=== PATIENT | male | born 1930 | race Caucasian/White ===

== ENCOUNTER 2017-04-18 14:27 | Inpatient (IN) | payer OTHER, MEDICARE ==
[2017-04-18] VITALS (11 sets, daily range): BP systolic 108–145; BP diastolic 57–79; PULSE 85–122; RESP 16; TEMP 99.2–100.4; O2SAT 90–95
[~2017-04-18] VITALS: Ht 172.7 cm; Wt 98.2 kg
[~2017-04-18 14:27] MED LIST: ASPI81TA82 PO; BUME1TAB PO; CALC-137 PO; CO Q100C9 OR; DOXY100T PO; OXYB5TAB PO; SIMV80TA PO; TRAM50TA PO; ZOFR4TAB3 SL
[2017-04-18] MEDS ORDERED: COQ-100C5 (14:42)
[2017-04-18] MEDS ORDERED: ATOR40TA16 PO (14:42)
[2017-04-18] MEDS ORDERED: MAGN400T2 PO (14:42)
[2017-04-18] MEDS ORDERED: CALC600T64 (14:42)
[2017-04-18] MEDS ORDERED: POTA8CAP PO (14:42)
[2017-04-18] MEDS ORDERED: METF500T PO (14:42)
[2017-04-18] MEDS ORDERED: VITATAB43 PO (14:42)
[2017-04-18] MEDS ORDERED: ASPI81CH6 CHEW (14:42)
[2017-04-18] MEDS ORDERED: SODIUM CHLOR 0.9% 1000 ML INJ 1,000 ML IV ONE ×2 (15:15→17:15)
[2017-04-18 15:38] LABS: AUTOMATED NEUTROPHIL # 27.9 TH/MM3 (1.8-7.7); BASOPHIL # 0.1 TH/MM3 (0-0.2); BASOPHIL % 0.4 % (0.0-2.0); HEMATOCRIT 44.1 % (39.0-51.0); HEMOGLOBIN 14.7 GM/DL (13.0-17.0); LYMPH % 2.8 % (9.0-44.0); LYMPHOCYTE # 0.9 TH/MM3 (1.0-4.8); MEAN CELL VOLUME 97.5 FL (80.0-100.0); MEAN CORPUSCULAR HEMOGLOBIN 32.5 PG (27.0-34.0); MEAN CORPUSCULAR HGB CONC 33.4 % (32.0-36.0); MEAN PLATELET VOLUME 9.5 FL (7.0-11.0); MONO % 6.7 % (0.0-8.0); MONOCYTE # 2.1 TH/MM3 (0-0.9); NEUT % 90.1 % (16.0-70.0); PLATELET COUNT 223 TH/MM3 (150-450); RED BLOOD COUNT 4.52 MIL/MM3 (4.50-5.90); RED CELL DISTRIBUTION WIDTH 12.6 % (11.6-17.2)
[2017-04-18 15:52] LABS: CHLORIDE 101 MEQ/L (98-107); SODIUM (NA) 133 MEQ/L (136-145)
[2017-04-18 15:55] LABS: BICARBONATE 18.6 MEQ/L (21.0-32.0); BLOOD UREA NITROGEN 26 MG/DL (7-18); CALCIUM 8.8 MG/DL (8.5-10.1); GLUCOSE,RANDOM 217 MG/DL (74-106)
[2017-04-18 15:58] LABS: INTERNATIONAL NORMALIZED RATIO 1.1 RATIO; PROTHROMBIN TIME - PATIENT 11.6 SEC (9.8-11.6)
[2017-04-18 15:59] LABS: GLOMERULAR FILTRATION RATE 48 ML/MIN (>89)
[2017-04-18 16:03] LABS: TROPONIN I LESS THAN 0.02 NG/ML (0.02-0.05)
[2017-04-18 16:25] LABS: BANDS 4 % (0-6); LYMPHOCYTES 3 % (9-44); MONOCYTES 9 % (0-8); NEUTROPHIL # MANUAL DIFF 27.3 TH/MM3 (1.8-7.7); POLYS (SEG NEUTROPHILS) 84 % (16-70)
[2017-04-18 16:26] LABS: TOXIC GRANULATION 1+ (NORMAL)
[2017-04-18 16:40] LABS: BLOOD, URINE LARGE (NEG); GLUCOSE,URINE NEG (NEG); KETONE, URINE 15 mg/dL (NEG); NITRITE,URINE POS (NEG); PH, URINE 5.5 (5.0-8.5); URINE LEUKOCYTE ESTERASE TRACE (NEG)
--- NOTE | 2017-04-18 16:49 | RADRPT ---
EXAM DATE/TIME: 04/18/2017 16:15 [place] COMPARISON: No previous studies available for comparison. INDICATIONS : Fell, has pain left anterior lower chest when he lays on left side MEDICAL HISTORY : None. SURGICAL HISTORY : None. ENCOUNTER: Initial ACUITY: 2 days PAIN SCORE: 10/10 LOCATION: Left lower chest FINDINGS: There are acute fractures of the left 8 and ninth ribs without a pneumothorax. CONCLUSION: Acute left rib fractures. Rody Horta MD on April 18, 2017 at 16:46 Board Certified Radiologist. This report was verified electronically.
[2017-04-18 17:13] LABS: BILIRUBIN, URINE NEG (NEG)
[2017-04-18] MEDS ORDERED: PIPERACIL-TAZO 3.375 GM PREMIX 50 ML IV ONE (17:15)
[2017-04-18] MEDS ORDERED: VANCOMYCIN INJ 1,250 MG in SODIUM CHLOR 0.9% 250 ML INJ 250 ML IV ONE (17:15)
--- NOTE | 2017-04-18 17:18 | PD ---
HPI Chief Complaint: General Weakness Time Seen by Provider: 14:56 Travel History International Travel<30 days: No Contact w/Intl Traveler<30days: No Traveled to known affect area: No History of Present Illness HPI 86yo M presents to the ED with left rib pain s/p fall yesterday. Denies any head trauma or LOC. Pt was able to get up himself. Denies any chest pain, sob , n/v, abdominal pain, focal weakness or numbness. Pt has been having worsening generalized weakness for a while now. Said he has urinary incontinence for years and fecal incontinence for weeks. He lives with his and is having a hard to taking care of himself. PFSH Past Medical History Arthritis: Yes High Cholesterol: Yes Diabetes: Yes Patient Takes Glucophage: Yes Diminished Hearing: No Influenza Vaccination: No Social History Alcohol Use: No Tobacco Use: No Substance Use: No Allergies-Medications (Allergen,Severity, Reaction): Coded Allergies: No Known Allergies (Verified Allergy, Unknown, 04/18/17) Reported Meds & Prescriptions Reported Meds & Active Scripts Active Reported Vitamin [id number] Acid (Cobalamine Combinations) 500-400 Mcg Tab 1 Tab PO EVERY OTHER DAY Magnesium Oxide 400 Mg Tab 400 Mg PO DAILY Potassium Chloride ER (Potassium Chloride) 8 Meq Cap 99 Mg PO DAILY Calcium 600 + Vit D Tablet (Calcium Carbonate/Vitamin D3) 250 Mg Calcium (600 Mg )-125 Unit Tablet Coq-10 Tr (Coenzyme Q10 (Ubidecarenone)) 100 Mg Cap Aspirin Low Dose (Aspirin) 81 Mg Chew 81 Mg CHEW DAILY Atorvastatin (Atorvastatin Calcium) 40 Mg Tab 40 Mg PO HS Metformin (Metformin HCl) 500 Mg Tab 500 Mg PO DAILY With a meal Review of Systems Except as stated in HPI: all other systems reviewed are Neg Physical Exam Narrative GENERAL: 86yo M in mild distress. SKIN: Focused skin assessment warm/dry. HEAD: Atraumatic. Normocephalic. EYES: Pupils equal and round. No scleral icterus. No injection or drainage. ENT: No nasal bleeding or discharge. Mucous membranes pink and moist. NECK: Trachea midline. No JVD. CARDIOVASCULAR: Regular rate and rhythm. No murmur appreciated. RESPIRATORY: No accessory muscle use. Clear to auscultation. Breath sounds equal bilaterally. GASTROINTESTINAL: Abdomen soft, non-tender, nondistended. MUSCULOSKELETAL: +TTP left anterior ribs 9-11. NEUROLOGICAL: Awake and alert. No obvious cranial nerve deficits. Decreased strength in bilateral lower extremity. Sensation intact. PSYCHIATRIC: Appropriate mood and affect; insight and judgment normal. Data Data Last Documented VS Vital Signs Date Time Temp Pulse Resp B/P (MAP) Pulse Ox O2 Delivery O2 Flow Rate FiO2 04/18/17 15:52 110 16 145/64 (91) 92 Nasal Cannula 2.00 04/18/17 14:32 99.5 Orders Orders Blood Culture (04/18/17 15:07) Complete Blood Count With Diff (04/18/17 15:07) Basic Metabolic Panel (Bmp) (04/18/17 15:07) Troponin I (04/18/17 15:07) Prothrombin Time / Inr (Pt) (04/18/17 15:07) Act Partial Throm Time (Ptt) (04/18/17 15:07) Lactic Acid Sepsis Protocol (04/18/17 15:07) Ribs, Uni (W/Exp Cxr-Min 3vw) (04/18/17 ) Urinalysis - C+S If Indicated (04/18/17 15:07) Sodium Chlor 0.9% 1000 Ml Inj (Ns 1000 M (04/18/17 15:15) B-Type Natriuretic Peptide (04/18/17 15:07) Electrocardiogram (04/18/17 ) Sodium Chlor 0.9% 1000 Ml Inj (Ns 1000 M (04/18/17 17:15) Vancomycin Inj (Vancomycin Inj) (04/18/17 17:15) Piperacil-Tazo 3.375 Gm Premix (Zosyn 3. (04/18/17 17:15) Influenzae A/B Antigen (04/18/17 17:22) Admit Order (Ed Use Only) (04/18/17 17:22) Urine Culture (04/18/17 16:14) Labs Laboratory Tests Test 04/18/17 15:10 04/18/17 16:14 04/18/17 16:51 White Blood Count 31.0 TH/MM3 Red Blood Count 4.52 MIL/MM3 Hemoglobin 14.7 GM/DL Hematocrit 44.1 % Mean Corpuscular Volume 97.5 FL Mean Corpuscular Hemoglobin 32.5 PG Mean Corpuscular Hemoglobin Concent 33.4 % Red Cell Distribution Width 12.6 % Platelet Count 223 TH/MM3 Mean Platelet Volume 9.5 FL Neutrophils (%) (Auto) 90.1 % Lymphocytes (%) (Auto) 2.8 % Monocytes (%) (Auto) 6.7 % Eosinophils (%) (Auto) 0.0 % Basophils (%) (Auto) 0.4 % Neutrophils # (Auto) 27.9 TH/MM3 Lymphocytes # (Auto) 0.9 TH/MM3 Monocytes # (Auto) 2.1 TH/MM3 Eosinophils # (Auto) 0.0 TH/MM3 Basophils # (Auto) 0.1 TH/MM3 CBC Comment AUTO DIFF Differential Total Cells Counted 100 Neutrophils % (Manual) 84 % Band Neutrophils % 4 % Lymphocytes % 3 % Monocytes % 9 % Neutrophils # (Manual) 27.3 TH/MM3 Differential Comment FINAL DIFF MANUAL Toxic Granulation 1+ Platelet Estimate NORMAL Platelet Morphology Comment NORMAL Red Cell Morphology Comment NORMAL Prothrombin Time 11.6 SEC Prothromb Time International Ratio 1.1 RATIO Activated Partial Thromboplast Time 25.2 SEC Blood Urea Nitrogen 26 MG/DL Creatinine 1.40 MG/DL Random Glucose 217 MG/DL Calcium Level 8.8 MG/DL Sodium Level 133 MEQ/L Potassium Level 4.3 MEQ/L Chloride Level 101 MEQ/L Carbon Dioxide Level 18.6 MEQ/L Anion Gap 13 MEQ/L Estimat Glomerular Filtration Rate 48 ML/MIN Troponin I LESS THAN 0.02 NG/ML B-Type Natriuretic Peptide 33 PG/ML Urine Collection Type CLEAN CATCH Urine Color DARK YELLOW Urine Turbidity CLOUDY Urine pH 5.5 Urine Specific [place] 1.027 Urine Protein 100 mg/dL Urine Glucose (UA) NEG mg/dL Urine Ketones 15 mg/dL Urine Occult Blood LARGE Urine Nitrite POS Urine Bilirubin NEG Urine Leukocyte Esterase TRACE Urine WBC 15-19 /hpf Urine WBC Clumps FEW Urine Squamous Epithelial Cells 3-5 /hpf Urine Bacteria MOD /hpf Urine Hyaline Casts 0-2 /lpf Urine Fine Granular Casts 3-5 /lpf Microscopic Urinalysis Comment CULTURE INDICATED Lactic Acid Level 2.3 mmol/L MDM Medical Decision Making Medical Screen Exam Complete: Yes Emergency Medical Condition: Yes Interpretation(s) EKG: Sinus tachycardia at 113bpm. LAD. No ST segment elevation or depression. Q wave in inferior leads. Differential Diagnosis Failure to thrive vs. malignancy vs. rib fracture vs. sepsis Narrative Course 86yo M with left rib pain s/p fall yesterday. Xray left ribs and CXR showed acute fractures of left 8th and 9th ribs without pneumothorax. Pt initially tachycardic in the 120s and given NS IVF which improve the heart rate to 100bpm. Labs reviewed, marked leukocytosis at 31,000. Pt does have history of a skin cancer 2 years ago but he said they just zap it. Lactic acid is elevated at 2.3. BUN/creatinine also elevated at 26/1.40. Troponin negative. BNP normal. Glucose elevated at 217. No increased in anion gap. UA showed positive nitrite. Pt empirically cover with vancomycin and zosyn. 2nd liter of NS IVF ordered. Discussed with Dr. Leal and accepted to her service for sepsis. Sepsis Criteria SIRS Criteria (2 or more): Heart rate over 90, WBC > 23202, < 4000 or > 10% bands Sepsis Criteria (SIRS+source): Infect source susp/known Severe Sepsis (+one): Lactate >2 Diagnosis Primary Impression: Severe sepsis Additional Impression: Rib fractures Qualified Codes: S22.42XA - Multiple fractures of ribs, left side, initial encounter for closed fracture Admitting Information Admitting Physician Requests: it Renee Orellana DO Apr 18, 2017 17:18
[2017-04-18 17:19] LABS: URINE COLOR DARK YELLOW (YELLW/STRAW)
[2017-04-18 17:20] LABS: WBC, URINE 15-19 /hpf (0-5); WHITE BLOOD CELL CLUMPS FEW
[2017-04-18 17:22] LABS: BACTERIA, URINE MOD /hpf; HYALINE CAST, URINE 0-2 /lpf (RARE)
[2017-04-18] MEDS ORDERED: DEXTROSE 50% IN WATER 50 ML VIAL(D50) IV PUSH PRN (17:30)
[2017-04-18] MEDS ORDERED: MAGNESIUM HYDROXIDE SUSP 30 ML CUP PO PRN (17:30)
[2017-04-18] MEDS ORDERED: GLUCAGON 1 MG/ML VIAL OTHER PRN (17:30)
[2017-04-18] MEDS ORDERED: NALOXONE HCL 0.4 MG/ML AMP IV PUSH PRN (17:30)
[2017-04-18] MEDS ORDERED: SODIUM CHLORIDE 0.9% FLUSH 10 ML FLUSH IV FLUSH PRN (17:30)
[2017-04-18] MEDS ORDERED: ONDANSETRON HCL 4 MG/2 ML VIAL IVP PRN (17:30)
[2017-04-18 17:49] LABS: LACTIC ACID SEPSIS PROTOCOL 2.3 mmol/L (0.4-2.0)
[2017-04-18] MEDS: ACETAMINOPHEN 325 MG TAB PO PRN (18:18)
[2017-04-18 18:57] LABS: TROPONIN I LESS THAN 0.02 NG/ML (0.02-0.05)
[2017-04-18] MEDS: SODIUM CHLOR 0.9% 1000 ML INJ 1,000 ML IV SCH (19:50)
[2017-04-18] MEDS: SODIUM CHLORIDE 0.9% FLUSH 10 ML FLUSH IV FLUSH SCH (21:00)
[2017-04-18] MEDS: INSULIN NovoLIN REGULAR SUPPLEMENTAL SCALE SQ SCH (21:19)
[2017-04-18 23:19] LABS: TROPONIN I 0.02 NG/ML (0.02-0.05)
[2017-04-19] VITALS (7 sets, daily range): BP systolic 109–136; BP diastolic 57–75; PULSE 67–88; RESP 16–20; TEMP 97.5–99.2; O2SAT 93–99
[2017-04-19] MEDS: SODIUM CHLOR 0.9% 1000 ML INJ 1,000 ML IV SCH ×2 (05:56→13:24)
[2017-04-19 06:16] LABS: AUTOMATED NEUTROPHIL # 21.4 TH/MM3 (1.8-7.7); BASOPHIL % 0.1 % (0.0-2.0); CHLORIDE 106 MEQ/L (98-107); EOSINOPHIL # 0.1 TH/MM3 (0-0.4); EOSINOPHIL % 0.2 % (0.0-4.0); HEMATOCRIT 37.4 % (39.0-51.0); HEMOGLOBIN 13.1 GM/DL (13.0-17.0); LYMPH % 8.5 % (9.0-44.0); LYMPHOCYTE # 2.2 TH/MM3 (1.0-4.8); MEAN CELL VOLUME 97.1 FL (80.0-100.0); MEAN PLATELET VOLUME 8.8 FL (7.0-11.0); MONO % 6.5 % (0.0-8.0); MONOCYTE # 1.7 TH/MM3 (0-0.9); NEUT % 84.7 % (16.0-70.0); PLATELET COUNT 183 TH/MM3 (150-450); RED BLOOD COUNT 3.85 MIL/MM3 (4.50-5.90); SODIUM (NA) 138 MEQ/L (136-145); WHITE BLOOD COUNT 25.4 TH/MM3 (4.0-11.0)
[2017-04-19 07:03] LABS: ALBUMIN 2.3 GM/DL (3.4-5.0); ALKALINE PHOSPHATASE 110 U/L (45-117); ALT (GPT) 20 U/L (12-78); AST (GOT) 30 U/L (15-37); BICARBONATE 24.1 MEQ/L (21.0-32.0); BLOOD UREA NITROGEN 22 MG/DL (7-18); CALCIUM 7.9 MG/DL (8.5-10.1); CREATININE 0.96 MG/DL (0.60-1.30); GLOMERULAR FILTRATION RATE 74 ML/MIN (>89); GLUCOSE,RANDOM 172 MG/DL (74-106); TOTAL BILIRUBIN ADULT 1.3 MG/DL (0.2-1.0)
[2017-04-19] MEDS: INSULIN NovoLIN REGULAR SUPPLEMENTAL SCALE SQ SCH ×4 (08:00→20:43)
[2017-04-19 08:02] LABS: TOXIC GRANULATION 1+ (NORMAL)
--- NOTE | 2017-04-19 08:27 | HHI.HP ---
[facility] Primary Care Physician Huber Barry MD Admission Diagnosis Urosepsis, rib fracture Diagnoses: (1) Leukocytosis (2) Acute kidney injury (3) UTI (urinary tract infection) (4) Rib fractures (5) Severe sepsis Chief Complaint: Fall, ribcage pain Travel History International Travel<30 Days: No Contact w/Intl Traveler <30 Da: No Traveled to Known Affected Are: No History of Present Illness The patient is an 86-year-old male who presented to the emergency department with pain in the left rib cage following a fall that occurred Wednesday. He is a poor historian. He states that he has lost track of time since being here. He feels that his rib cage pain is improving. He denies chest pain or dyspnea. He states that he occasionally becomes dizzy and that causes him to fall. He states that it usually happens at night when he is going to bed or first thing in the morning when he is waking up. He denies loss of consciousness. Did not hit his head. He reports diarrhea, one to 2 loose stools per day, for the last week. Review of Systems Constitutional: COMPLAINS OF: Dizziness, DENIES: Fever, Chills, Night Sweats Eyes: DENIES: Blurred vision, Vision loss Ears, nose, mouth, throat: DENIES: Hearing loss Respiratory: DENIES: Cough, Wheezing, Sputum production, Shortness of breath Cardiovascular: DENIES: Chest pain, Palpitations, Dyspnea on Exertion, Lower Extremity Edema Gastrointestinal: COMPLAINS OF: Diarrhea, DENIES: Abdominal pain, Constipation , Nausea, Vomiting Genitourinary: DENIES: Urinary frequency, Urinary incontinence, Urgency, Hematuria, Dysuria, Nocturia Musculoskeletal: DENIES: Joint pain, Muscle aches Integumentary: DENIES: Pruritus, Rash Hematologic/lymphatic: DENIES: Bruising Neurologic: DENIES: Headache, Localized weakness, Paresthesias Past Family Social History Past Medical History Hyperlipidemia Diabetes mellitus type 2 Arthritis Past Surgical History The patient is unsure what surgeries he has had. Reported Medications Vitamin X40-Ntiae Acid (Cobalamine Combinations) 500-400 Mcg Tab 1 Tab PO EVERY OTHER DAY Magnesium Oxide 400 Mg Tab 400 Mg PO DAILY Potassium Chloride ER (Potassium Chloride) 8 Meq Cap 99 Mg PO DAILY Calcium 600 + Vit D Tablet (Calcium Carbonate/Vitamin D3) 250 Mg Calcium (600 Mg )-125 Unit Tablet Coq-10 Tr (Coenzyme Q10 (Ubidecarenone)) 100 Mg Cap Aspirin Low Dose (Aspirin) 81 Mg Chew 81 Mg CHEW DAILY Atorvastatin (Atorvastatin Calcium) 40 Mg Tab 40 Mg PO HS Metformin (Metformin HCl) 500 Mg Tab 500 Mg PO DAILY With a meal Allergies: Coded Allergies: No Known Allergies (Verified Allergy, Unknown, 04/18/17) Family History He states that both of his sisters are , his youngest sister last week. He states that he does not know anything about their medical history. Social History Quit smoking cigars "many years ago". Denies alcohol or illicit drug use. Physical Exam Vital Signs Vital Signs Date Time Temp Pulse Resp B/P (MAP) Pulse Ox O2 Delivery O2 Flow Rate FiO2 04/19/17 08:00 95 Nasal Cannula 2.00 04/19/17 08:00 67 04/19/17 04:00 98.9 85 16 109/59 (76) 96 04/19/17 00:00 99.2 88 16 116/57 (76) 95 04/18/17 22:10 95 Nasal Cannula 2.00 04/18/17 21:44 85 04/18/17 21:40 99.2 88 16 116/57 (76) 95 04/18/17 21:38 94 Nasal Cannula 2.00 04/18/17 21:13 88 16 123/69 (87) 93 Nasal Cannula 2.00 04/18/17 19:12 99.9 92 16 119/67 (84) 94 Nasal Cannula 2.00 04/18/17 18:05 100.4 04/18/17 17:52 94 Nasal Cannula 2.00 04/18/17 17:35 100 16 119/68 (85) 94 Nasal Cannula 2.00 04/18/17 15:52 110 16 145/64 (91) 92 Nasal Cannula 2.00 04/18/17 14:32 99.5 121 16 108/70 (83) 90 04/18/17 14:27 122 16 140/79 (99) 95 Nasal Cannula 2.00 Physical Exam GENERAL: Elderly male in no acute distress. HEENT: Normocephalic, atraumatic. Pupils equal, round and reactive. Extraocular movements intact. No scleral icterus. No injection or drainage. Oropharynx is clear. Mucous membranes are moist. CARDIOVASCULAR: Regular rate and rhythm without murmurs, gallops, or rubs. RESPIRATORY: Clear to auscultation. No wheezes, rales, or rhonchi. Breathing is non-labored. GASTROINTESTINAL: Abdomen soft, non-tender, nondistended. EXTREMITIES: No lower extremity edema. No calf tenderness. PSYCH: Alert and oriented x 3. Answers questions appropriately, but has poor recall regarding his medical history. Laboratory Laboratory Tests Test 04/18/17 15:10 04/18/17 16:14 04/18/17 16:51 04/18/17 18:17 White Blood Count 31.0 Red Blood Count 4.52 Hemoglobin 14.7 Hematocrit 44.1 Mean Corpuscular Volume 97.5 Mean Corpuscular Hemoglobin 32.5 Mean Corpuscular Hemoglobin Concent 33.4 Red Cell Distribution Width 12.6 Platelet Count 223 Mean Platelet Volume 9.5 Neutrophils (%) (Auto) 90.1 Lymphocytes (%) (Auto) 2.8 Monocytes (%) (Auto) 6.7 Eosinophils (%) (Auto) 0.0 Basophils (%) (Auto) 0.4 Neutrophils # (Auto) 27.9 Lymphocytes # (Auto) 0.9 Monocytes # (Auto) 2.1 Eosinophils # (Auto) 0.0 Basophils # (Auto) 0.1 CBC Comment AUTO DIFF Differential Total Cells Counted 100 Neutrophils % (Manual) 84 Band Neutrophils % 4 Lymphocytes % 3 Monocytes % 9 Neutrophils # (Manual) 27.3 Differential Comment FINAL DIFF MANUAL Toxic Granulation 1+ Platelet Estimate NORMAL Platelet Morphology Comment NORMAL Red Cell Morphology Comment NORMAL Prothrombin Time 11.6 Prothromb Time International Ratio 1.1 Activated Partial Thromboplast Time 25.2 Blood Urea Nitrogen 26 Creatinine 1.40 Random Glucose 217 Calcium Level 8.8 Sodium Level 133 Potassium Level 4.3 Chloride Level 101 Carbon Dioxide Level 18.6 Anion Gap 13 Estimat Glomerular Filtration Rate 48 Troponin I LESS THAN 0.02 LESS THAN 0.02 B-Type Natriuretic Peptide 33 Urine Collection Type CLEAN CATCH Urine Color DARK YELLOW Urine Turbidity CLOUDY Urine pH 5.5 Urine Specific [place] 1.027 Urine Protein 100 Urine Glucose (UA) NEG Urine Ketones 15 Urine Occult Blood LARGE Urine Nitrite POS Urine Bilirubin NEG Urine Leukocyte Esterase TRACE Urine WBC 15-19 Urine WBC Clumps FEW Urine Squamous Epithelial Cells 3-5 Urine Bacteria MOD Urine Hyaline Casts 0-2 Urine Fine Granular Casts 3-5 Microscopic Urinalysis Comment CULTURE INDICATED Lactic Acid Level 2.3 Total Creatine Kinase 369 Creatine Kinase MB 2.1 Creatine Kinase MB % 0.6 Test 04/18/17 19:25 04/18/17 22:45 04/19/17 04:45 Lactic Acid Level 1.5 Total Creatine Kinase 361 Creatine Kinase MB 1.9 Creatine Kinase MB % 0.5 Troponin I 0.02 White Blood Count 25.4 Red Blood Count 3.85 Hemoglobin 13.1 Hematocrit 37.4 Mean Corpuscular Volume 97.1 Mean Corpuscular Hemoglobin 34.0 Mean Corpuscular Hemoglobin Concent 35.0 Red Cell Distribution Width 13.0 Platelet Count 183 Mean Platelet Volume 8.8 Neutrophils (%) (Auto) 84.7 Lymphocytes (%) (Auto) 8.5 Monocytes (%) (Auto) 6.5 Eosinophils (%) (Auto) 0.2 Basophils (%) (Auto) 0.1 Neutrophils # (Auto) 21.4 Lymphocytes # (Auto) 2.2 Monocytes # (Auto) 1.7 Eosinophils # (Auto) 0.1 Basophils # (Auto) 0.0 CBC Comment AUTO DIFF Differential Comment AUTO DIFF CONFIRMED Toxic Granulation 1+ Platelet Estimate NORMAL Platelet Morphology Comment NORMAL Red Cell Morphology Comment NORMAL Blood Urea Nitrogen 22 Creatinine 0.96 Random Glucose 172 Total Protein 6.0 Albumin 2.3 Calcium Level 7.9 Alkaline Phosphatase 110 Aspartate Amino Transf (AST/SGOT) 30 Alanine Aminotransferase (ALT/SGPT) 20 Total Bilirubin 1.3 Sodium Level 138 Potassium Level 3.9 Chloride Level 106 Carbon Dioxide Level 24.1 Anion Gap 8 Estimat Glomerular Filtration Rate 74 Date/Time Source Procedure Growth Status 04/18/17 15:15 Blood Peripheral Aerobic Blood Culture Pending Received 04/18/17 15:15 Blood Peripheral Anaerobic Blood Culture Pending Received 04/18/17 17:31 Nasal Aspirate Influenza Types A,B Antigen (JIHAN) - Final NEGATIVE FOR FLU A AND B ANTIGEN.... Complete 04/18/17 16:14 Urine Clean Catch Urine Culture Pending Received Result Diagram: 04/19/175 04/19/175 Imaging Last Impressions Ribs X-Ray 04/18/17 0000 Signed Impressions: Service Date/Time: Tuesday, April 18, 2017 16:15 - CONCLUSION: Acute left rib fractures. MD Ariel Napoles VTE Risk Assessment Ariel VTE Risk Assessment: Mod/High Risk (score >= 2) Caprini Risk Assessment Model Point Value = 1 Point Value = 2 Point Value = 3 Point Value = 5 Age 41-60 Minor surgery BMI > 25 kg/m2 Swollen legs Varicose veins or History of unexplained or recurrent spontaneous Oral contraceptives or hormone replacement Sepsis (< 1 month) Serious lung disease, including pneumonia (< 1 month) Abnormal pulmonary function Acute myocardial infarction Congestive heart failure (< 1 month) History of inflammatory bowel disease Medical patient at bed rest Age 61-74 Arthroscopic surgery Major open surgery (> 45 min) Laparoscopic surgery (> 45 min) Malignancy Confined to bed (> 72 hours) Immobilizing plaster cast Central venous access Age >= 75 History of VTE Family history of VTE Factor V Leiden Prothrombin [id number] Lupus anticoagulant Anticardiolipin antibodies Elevated serum homocysteine Heparin-induced thrombocytopenia Other congenital or acquired thrombophilia Stroke (< 1 month) Elective arthroplasty Hip, pelvis, or leg fracture Acute spinal cord injury (< 1 month) Prophylaxis Regimen Total Risk Factor Score Risk Level Prophylaxis Regimen 0-1 Low Early ambulation 2 Moderate Order ONE of the following: *Sequential Compression Device (SCD) *Heparin 5000 units SQ BID 3-4 Higher Order ONE of the following medications: *Heparin 5000 units SQ TID *Enoxaparin/Lovenox 40 mg SQ daily (WT < 150 kg, CrCl > 30 mL/min) *Enoxaparin/Lovenox 30 mg SQ daily (WT < 150 kg, CrCl > 10-29 mL/min) *Enoxaparin/Lovenox 30 mg SQ BID (WT < 150 kg, CrCl > 30 mL/min) AND/OR *Sequential Compression Device (SCD) 5 or more Highest Order ONE of the following medications: *Heparin 5000 units SQ TID (Preferred with Epidurals) *Enoxaparin/Lovenox 40 mg SQ daily (WT < 150 kg, CrCl > 30 mL/min) *Enoxaparin/Lovenox 30 mg SQ daily (WT < 150 kg, CrCl > 10-29 mL/min) *Enoxaparin/Lovenox 30 mg SQ BID (WT < 150 kg, CrCl > 30 mL/min) AND *Sequential Compression Device (SCD) Assessment and Plan Assessment and Plan 1. Severe sepsis secondary to UTI: Urine culture is pending. Continue Rocephin. Patient received vancomycin mycin and Zosyn empirically in the ER. Leukocytosis is improving. Lactic acidosis has resolved. 2. Fall, rib fractures: Continue pain control. 3. Diabetes mellitus type 2: Metformin on hold. Monitor Accu-Cheks and cover with sliding scale insulin. 4. Acute kidney injury: Creatinine improving. Continue IV fluids. 5. Hyperlipidemia: Continue statin. 6. DVT prophylaxis: SUSI Ayala. Physician Certification 2 Midnight Certification Type: Admission for Inpatient Services Order for Inpatient Services The services are ordered in accordance with Medicare regulations or non- Medicare payer requirements, as applicable. In the case of services not specified as inpatient-only, they are appropriately provided as inpatient services in accordance with the 2-midnight benchmark. Estimated LOS (days): 3 days is the estimated time the patient will need to remain in the hospital, assuming treatment plan goals are met and no additional complications. Post-Hospital Plan: Not yet determined Alonso Anna MD Apr 19, 2017 08:26
[2017-04-19] MEDS: SODIUM CHLORIDE 0.9% FLUSH 10 ML FLUSH IV FLUSH SCH ×2 (09:00→20:43)
[2017-04-19] MEDS: CYANOCOBALAMIN 1,000 MCG TAB PO SCH (09:00)
[2017-04-19] MEDS: cefTRIAXone INJ 1,000 MG in SODIUM CHLORIDE 0.9% INJ 100 ML IV SCH (10:04)
[2017-04-19] MEDS: MAGNESIUM OXIDE 400 MG TAB PO SCH (10:22)
[2017-04-19] MEDS: FOLIC ACID 1 MG TAB PO SCH (10:22)
[2017-04-19] MEDS: ASPIRIN 81 MG CHEW TAB CHEW SCH (10:22)
[2017-04-19] MEDS: CALCIUM/VITAMIN D 250 MG/125 U TAB PO SCH (10:24)
[2017-04-19] MEDS: ACETAMINOPHEN 325 MG TAB PO PRN (16:51)
[2017-04-19] MEDS: ATORVASTATIN 40 MG TAB PO SCH (20:43)
--- NOTE | 2017-04-19 22:16 | EKG ---
Date Performed: 04/18/2017 Time Performed: 15:22:58 PTAGE: 86 years EKG: SINUS TACHYCARDIA LOW QRS VOLTAGE IN PRECORDIAL LEADS POSSIBLE ANTERIOR MYOCARDIAL INFARCTI ON INFERIOR MYOCARDIAL INFARCTION ABNORMAL ECG PREVIOUS TRACING : 08/07/2005 11.27 DOCTOR: Jeaneth Dale Interpretating Date/Time 04/19/2017 22:05:56
[2017-04-20] VITALS: BP 126/58; PULSE 81; RESP 18; TEMP 98.5; O2SAT 93
[2017-04-20] MEDS: SODIUM CHLOR 0.9% 1000 ML INJ 1,000 ML IV SCH ×3 (03:45→18:54)
[2017-04-20 04:00] VITALS: BP 126/58; PULSE 81; RESP 20; TEMP 98; O2SAT 93
[2017-04-20 06:49] LABS: CALCIUM 7.7 MG/DL (8.5-10.1)
[2017-04-20 06:50] LABS: BICARBONATE 22.8 MEQ/L (21.0-32.0)
[2017-04-20 06:51] LABS: AUTOMATED NEUTROPHIL # 15.3 TH/MM3 (1.8-7.7); BASOPHIL # 0.1 TH/MM3 (0-0.2); BASOPHIL % 0.4 % (0.0-2.0); EOSINOPHIL # 0.4 TH/MM3 (0-0.4); EOSINOPHIL % 1.9 % (0.0-4.0); HEMATOCRIT 38.9 % (39.0-51.0); HEMOGLOBIN 13.1 GM/DL (13.0-17.0); LYMPH % 7.9 % (9.0-44.0); LYMPHOCYTE # 1.5 TH/MM3 (1.0-4.8); MEAN CORPUSCULAR HEMOGLOBIN 32.3 PG (27.0-34.0); MEAN CORPUSCULAR HGB CONC 33.6 % (32.0-36.0); MEAN PLATELET VOLUME 9.5 FL (7.0-11.0); MONOCYTE # 1.3 TH/MM3 (0-0.9); NEUT % 82.8 % (16.0-70.0); PLATELET COUNT 158 TH/MM3 (150-450); RED BLOOD COUNT 4.05 MIL/MM3 (4.50-5.90); RED CELL DISTRIBUTION WIDTH 12.4 % (11.6-17.2); WHITE BLOOD COUNT 18.6 TH/MM3 (4.0-11.0)
[2017-04-20 06:53] LABS: CREATININE 0.76 MG/DL (0.60-1.30)
[2017-04-20 07:23] LABS: BANDS 8 % (0-6); LYMPHOCYTES 2 % (9-44); MONOCYTES 9 % (0-8); NEUTROPHIL # MANUAL DIFF 16.4 TH/MM3 (1.8-7.7); POLYS (SEG NEUTROPHILS) 80 % (16-70)
[2017-04-20] MEDS: INSULIN NovoLIN REGULAR SUPPLEMENTAL SCALE SQ SCH ×4 (08:00→20:31)
[2017-04-20] MEDS: ASPIRIN 81 MG CHEW TAB CHEW SCH ×2 (08:47→11:16)
[2017-04-20] MEDS: cefTRIAXone INJ 1,000 MG in SODIUM CHLORIDE 0.9% INJ 100 ML IV SCH ×2 (08:47→11:17)
[2017-04-20] MEDS: CALCIUM/VITAMIN D 250 MG/125 U TAB PO SCH ×2 (08:48→11:16)
[2017-04-20] MEDS: SODIUM CHLORIDE 0.9% FLUSH 10 ML FLUSH IV FLUSH SCH ×2 (08:48→20:31)
[2017-04-20] MEDS: MAGNESIUM OXIDE 400 MG TAB PO SCH ×2 (09:11→11:35)
[2017-04-20 12:00] VITALS: BP 157/76; PULSE 103; RESP 20; TEMP 100; O2SAT 92
--- NOTE | 2017-04-20 12:45 | HHI.PR ---
Subjective Remarks Patient appears to have delirium when seen today. He is expressing intentions to leave. We talked about consequences of leaving on the septic state. I informed him that this might result in him becoming sick and dying. He does not seem to care. He says that at this point he is angry at his daughter for not bringing him clothing so that he could leave the hospital. He expresses that he would like to go home and shoot himself in the head. Objective Vital Signs Date Time Temp Pulse Resp B/P (MAP) Pulse Ox O2 Delivery O2 Flow Rate FiO2 04/20/17 04:00 98.0 81 20 126/58 (80) 93 04/20/17 00:00 98.5 81 18 126/58 (80) 93 04/19/17 20:15 99 21 04/19/17 20:00 75 04/19/17 20:00 98.0 78 20 129/63 (85) 94 04/19/17 17:51 20 04/19/17 16:00 97.5 70 20 136/67 (90) 94 I/O 04/19/17 04/19/17 04/19/17 04/20/17 04/20/17 04/20/17 07:00 15:00 23:00 07:00 15:00 23:00 Intake Total 742 ml 240 ml 1480 ml Output Total 300 ml 520 ml Balance 742 ml -60 ml 960 ml Intake Oral 240 ml 480 ml IV Total 742 ml 1000 ml Output Urine Total 300 ml 520 ml # Voids 3 # Bowel Movements 2 0 Result Diagram: 04/20/17 0453 04/20/17 0453 Objective Remarks GENERAL: NAD, A&Ox2, delirium HEAD: Normocephalic. NECK: Supple, trachea midline. No lymphadenopathy. EYES: No scleral icterus. No injection or drainage. CARDIOVASCULAR: Regular rate and rhythm without murmurs, gallops, or rubs. RESPIRATORY: Breath sounds equal bilaterally. No accessory muscle use. GASTROINTESTINAL: Abdomen soft, non-tender, nondistended. MUSCULOSKELETAL: No cyanosis, or edema. SKIN: Warm and dry. NEURO: No focal neurological deficitis. A/P Problem List: (1) Acute kidney injury ICD Code: N17.9 - Acute kidney failure, unspecified (2) UTI (urinary tract infection) ICD Code: N39.0 - Urinary tract infection, site not specified (3) Leukocytosis ICD Code: D72.829 - Elevated white blood cell count, unspecified (4) Severe sepsis ICD Code: A41.9 - Sepsis, unspecified organism; R65.20 - Severe sepsis without septic shock Status: Acute (5) Rib fractures ICD Code: S22.39XA - Fracture of one rib, unspecified side, initial encounter for closed fracture Status: Acute Assessment and Plan 86-year-old male admitted secondary to urinary tract infection with severe sepsis, rib fracture, and delirium. Severe sepsis Continue antibiotic treatments Monitor for improvement Follow vital signs closely Urinary tract infection Continue Rocephin Follow urine cultures Rib fractures Supportive care As needed pain treatment Acute encephalopathy Delirium Suicidal ideation Patient is not currently oriented and unable to make competent decisions Treatment infection as above Consults psychiatry Patient is placed in soft restraints Sitter to bedside Diabetes mellitus type 2 Follow blood sugars Insulin sliding scale Diabetic diet Acute kidney injury Continue IV hydration Follow renal function Hyperlipidemia Continue statin DVT prophylaxis Guanakito Pearce MD Apr 20, 2017 12:45
[2017-04-20 14:35] VITALS: O2SAT 94
[2017-04-20 15:30] VITALS: PULSE 75
--- NOTE | 2017-04-20 19:06 | PD.PSY.CON ---
Provisional Diagnosis Admission Date Apr 18, 2017 at 17:24 [place] I. Unspecified psychosis vs delirium due to to another underlying medical condition , most probably sepsis [place] II. Deferred [place] III. Diabetes, hypertension, UTI History of Present Illness Service Psychiatry Consult Requested By Medical team Reason for Consult Psychosis and suicidal ideation Primary Care Physician Huber Barry MD HPI The patient is an 86-year-old man, domiciled with his in [place], his retired, has 2 kids, supported by long term benefits, he has no previous psychiatric history, no previous suicidal attempts, no previous psychiatric hospitalizations, medical history of hypertension and diabetes, who presented to the emergency department with pain in the left rib cage following a fall that occurred last Wednesday. He was admitted secondary to urinary tract infection with severe sepsis, rib fracture, and delirium. During the hospitalization the patient has been showing signs of delirium, he has been agitated, disorganized, yesterday he was requesting to be discharged from the hospital he also has expressed SI. He was finally consulted to psychiatry. Chart was reviewed. On psychiatric evaluation the patient is found calm, superficially cooperative, he has been recently released from restraints. The patient reports good mood, but he is kind of confused, he denies that he is at his house in his room. His paranoid, he things that the voices of the nurses out of the room "are people talking about me and plotting to kill". Patient says that he is very scared "because I know that something is going on in the bank"however, the patient does not elaborate about this idea. He is redirected and reoriented, he seems to be sensitive to these measures. The patient denies distress, denies pain, he denies depressive symptoms. He is just partially oriented, he is disoriented in place, he says that we are in 2018, he knows who is the president of denies states. The patient denies suicidal ideation, however he says that "if I cannot escalera today and going to kill myself". 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 But after some minutes the patient become confused and tangential. He denies the use of illegal drugs and alcohol. Collateral information from his 2 kids, present during part of the evaluation, was obtained. They say that the patient has been increasingly disorganized, decompensating progressively physically and mentally in the last weeks. He has been verbally hostile and aggressive with his , he has been paranoid at home , making very bizarre accusations to family members and neighbors. They say that they are not safe with the patient at home, because he also has been stating that he wants to kill himself and he has firearms at home. Review of Systems Constitutional: DENIES: Diaphoretic episodes, Fatigue, Fever, Weight gain, Weight loss, Chills, Dizziness, Change in appetite, Night Sweats Endocrine: DENIES: Heat/cold intolerance, Polydipsia, Polyuria, Polyphagia Eyes: DENIES: Blurred vision, Diplopia, Eye inflammation, Eye pain, Vision loss , Photosensitivity, Double Vision Ears, nose, mouth, throat: DENIES: Tinnitus, Hearing loss, Vertigo, Nasal discharge, Oral lesions, Throat pain, Hoarseness, Ear Pain, Running Nose, Epistaxis, Sinus Pain, Toothache, Odynophagia Respiratory: DENIES: Apneas, Cough, Snoring, Wheezing, Hemoptysis, Sputum production, Shortness of breath Cardiovascular: DENIES: Chest pain, Palpitations, Syncope, Dyspnea on Exertion , PND, Lower Extremity Edema, Orthopnea, Claudication Gastrointestinal: DENIES: Abdominal pain, Black stools, Bloody stools, Constipation, Diarrhea, Nausea, Vomiting, Difficulty Swallowing, Anorexia Genitourinary: DENIES: Sexual dysfunction, Urinary frequency, Urinary incontinence, Urgency, Hematuria, Dysuria, Nocturia, Penile Discharge, Testicular Pain, Testicular Swelling Musculoskeletal: DENIES: Joint pain, Muscle aches, Stiffness, Joint Swelling, Back pain, Neck pain Integumentary: DENIES: Abnormal pigmentation, Nail changes, Pruritus, Rash Hematologic/lymphatic: DENIES: Bruising, Lymphadenopathy Immunologic/allergic: DENIES: Eczema, Urticaria Neurologic: DENIES: Abnormal gait, Headache, Localized weakness, Paresthesias, Seizures, Speech Problems, Tremor, Poor Balance Psychiatric: COMPLAINS OF: Confusion, Suicidal Ideation, Delusions, DENIES: Anxiety, Mood changes, Depression, Hallucinations, Agitation, Homicidal Ideation Past Family Social History Coded Allergies: No Known Allergies (Verified Allergy, Unknown, 04/18/17) Reported Medications Cobalamine Combinations (Vitamin B80-Mzgho Acid) 500-400 Mcg Tab, 1 TAB PO EVERY OTHER DAY for Nutritional Supplement, TAB 0 Refills 04/18/17 Magnesium Oxide (Magnesium Oxide) 400 Mg Tab, 400 MG PO DAILY for Nutritional Supplement, TAB 0 Refills 04/18/17 Potassium Chloride ER (Potassium Chloride ER) 8 Meq Cap, 99 MG PO DAILY for Electrolyte Replacement, #60 CAP 0 Refills 04/18/17 Calcium Carbonate/Vitamin D3 (Calcium 600 + Vit D Tablet) 250 Mg Calcium (600 Mg )-125 Unit Tablet 04/18/17 Coenzyme Q10 (Ubidecarenone) (Coq-10 Tr) 100 Mg Cap 04/18/17 Aspirin (Aspirin Low Dose) 81 Mg Chew, 81 MG CHEW DAILY, TAB 0 Refills 04/18/17 Atorvastatin (Atorvastatin) 40 Mg Tab, 40 MG PO HS for Cholesterol Management, # 30 TAB 0 Refills 04/18/17 Metformin (Metformin) 500 Mg Tab, 500 MG PO DAILY for Blood Sugar Management, # 30 TAB 0 Refills With a meal 04/18/17 Current Medications Medications (Trade) Dose Ordered Sig/Alyssa Route Start Time Stop Time Status Last Admin Sodium Chloride 1,000 ml @ 100 mls/hr Q10H IV 04/18/17 17:24 04/20/17 03:45 (NS Flush) 2 ml UNSCH PRN IV FLUSH 04/18/17 17:30 (NS Flush) 2 ml BID IV FLUSH 04/18/17 21:00 04/19/17 20:43 (Tylenol) 650 mg Q4H PRN PO 04/18/17 17:30 04/19/17 16:51 (Zofran Inj) 4 mg Q6H PRN IVP 04/18/17 17:30 04/19/17 10:04 (Narcan Inj) 0.4 mg UNSCH PRN IV PUSH 04/18/17 17:30 (Milk Of Magnesia Liq) 30 ml Q12H PRN PO 04/18/17 17:30 (D50w (Vial) Inj) 50 ml UNSCH PRN IV PUSH 04/18/17 17:30 (Glucagon Inj) 1 mg UNSCH PRN OTHER 04/18/17 17:30 (NovoLIN R SUPPLEMENTAL SCALE) 1 ACHS SLIDING SCALE SQ 04/18/17 21:00 04/18/17 21:19 Ceftriaxone Sodium 1000 mg/ Sodium Chloride 100 ml @ 200 mls/hr Q24H IV 04/19/17 09:00 04/20/17 11:17 (Aspirin Chew) 81 mg DAILY CHEW 04/19/17 09:00 04/20/17 11:16 (Lipitor) 40 mg HS PO 04/19/17 21:00 04/19/17 20:43 (Mag-Ox) 400 mg DAILY@1100 PO 04/19/17 11:00 04/20/17 11:35 (Vitamin B12) 500 mcg EVERY OTHER DAY PO 04/19/17 09:00 04/19/17 09:00 (Oscal-D 250-125) 250 mg DAILY PO 04/19/17 09:00 04/20/17 11:16 (Folate) 1 mg EVERY OTHER DAY PO 04/19/17 09:00 04/19/17 10:22 Family Psych History No family psychiatric history Social History She was born and raised in [place], he lives in [place] with his , 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 2) Family support Physical Exam No tremors, no psychomotor agitation or retardation, no EPS, no stiffness, Vital Signs Vital Signs Date Time Temp Pulse Resp B/P (MAP) Pulse Ox O2 Delivery O2 Flow Rate FiO2 04/20/17 15:30 75 04/20/17 12:00 100.0 20 157/76 (103) 92 04/20/17 08:45 Room Air 04/19/17 20:15 21 04/19/17 08:00 2.00 I/O 04/20/17 04/20/17 04/21/17 08:00 16:00 00:00 Intake Total 1480 ml 0 ml 300 ml Output Total 520 ml 700 ml 100 ml Balance 960 ml -700 ml 200 ml Lab Results Test 04/20/17 04:53 White Blood Count 18.6 TH/MM3 Red Blood Count 4.05 MIL/MM3 Hemoglobin 13.1 GM/DL Hematocrit 38.9 % Mean Corpuscular Volume 96.0 FL Mean Corpuscular Hemoglobin 32.3 PG Mean Corpuscular Hemoglobin Concent 33.6 % Red Cell Distribution Width 12.4 % Platelet Count 158 TH/MM3 Mean Platelet Volume 9.5 FL Neutrophils (%) (Auto) 82.8 % Lymphocytes (%) (Auto) 7.9 % Monocytes (%) (Auto) 7.0 % Eosinophils (%) (Auto) 1.9 % Basophils (%) (Auto) 0.4 % Neutrophils # (Auto) 15.3 TH/MM3 Lymphocytes # (Auto) 1.5 TH/MM3 Monocytes # (Auto) 1.3 TH/MM3 Eosinophils # (Auto) 0.4 TH/MM3 Basophils # (Auto) 0.1 TH/MM3 CBC Comment AUTO DIFF Differential Total Cells Counted 100 Neutrophils % (Manual) 80 % Band Neutrophils % 8 % Lymphocytes % 2 % Monocytes % 9 % Eosinophils % 1 % Neutrophils # (Manual) 16.4 TH/MM3 Differential Comment FINAL DIFF MANUAL Platelet Estimate NORMAL Platelet Morphology Comment NORMAL Red Cell Morphology Comment NORMAL Blood Urea Nitrogen 19 MG/DL Creatinine 0.76 MG/DL Random Glucose 148 MG/DL Calcium Level 7.7 MG/DL Sodium Level 137 MEQ/L Potassium Level 3.8 MEQ/L Chloride Level 106 MEQ/L Carbon Dioxide Level 22.8 MEQ/L Anion Gap 8 MEQ/L Estimat Glomerular Filtration Rate 97 ML/MIN Total Creatine Kinase 143 U/L Date/Time Source Procedure Growth Status 04/18/17 15:15 Blood Peripheral Aerobic Blood Culture - Preliminary NO GROWTH IN 2 DAYS Resulted 04/18/17 15:15 Anaerobic Blood Culture - Preliminary Staphylococcus Epidermidis Resulted 04/18/17 17:31 Nasal Aspirate Influenza Types A,B Antigen (JIHAN) - Final NEGATIVE FOR FLU A AND B ANTIGEN.... Complete 04/18/17 16:14 Urine Clean Catch Urine Culture - Final Escherichia Coli Complete Mental Status Examination Appearance: Appropriate Consciousness: Alert Orientation: Person, Date/Time Motor Activity: Normal gait Speech: Unremarkable Language: Adequate Fund of Knowledge: Inadequate Attention and Concentration: Adequate Memory: Impaired Mood: Irritable Affect: Irritable Thought Content: Delusional Hallucination Type: Visual Suicidal Ideation: Yes Suicidal Plan: No Suicidal Intention: No Homicidal Ideation: No Homicidal Plan: No Homicidal Intention: No Insight: Poor Judgment: Poor Assessment & Plan Problem List: (1) Unspecified psychosis ICD Codes: F29 - Unspecified psychosis not due to a substance or known physiological condition Assessment & Plan: On psychiatric evaluation the patient presents kind of confused, disoriented in place, he thinks he is at home during the whole evaluation, paranoid toward staff. He now denies SI/HI/VH/AH, but has endorsed SI to staff and attending physician. I have met with his daughter and her son and they both expresses their serious concern about patient's and his safety. They say patient has been verbalizing repetitively suicidal ideation and he has been increasingly paranoid and verbally abusive with family members. They say patient has firearms at home, he has a very short temper and he is not accepting he can not drive any more an he needs to rest at home. Given his level of paranoia, confusion, history of poor impulse control and his reported SI he has an increased risk of danger to self and others and he benefits of involuntary psychiatric admission for stabilization and safety. He will be started on Seroquel 25 mg bid for psychosis and impulse control. This plan has been discussed with his kids and they verbalized agreement. Transfer to Psychiatry once medically appropriate. Assessment & Plan Estimated LOS: Thomas Leal MD Apr 20, 2017 19:06
[2017-04-20 20:00] VITALS: BP 166/75; PULSE 99; RESP 20; TEMP 98; O2SAT 93
[2017-04-20] MEDS: ATORVASTATIN 40 MG TAB PO SCH (20:31)
[2017-04-21] VITALS: BP 128/65; PULSE 85; RESP 20; TEMP 97.7; O2SAT 92
[2017-04-21] MEDS: SODIUM CHLOR 0.9% 1000 ML INJ 1,000 ML IV SCH ×2 (05:01→13:06)
[2017-04-21 06:42] LABS: AUTOMATED NEUTROPHIL # 11.7 TH/MM3 (1.8-7.7); BASOPHIL # 0.1 TH/MM3 (0-0.2); BASOPHIL % 0.5 % (0.0-2.0); EOSINOPHIL # 0.1 TH/MM3 (0-0.4); EOSINOPHIL % 0.8 % (0.0-4.0); HEMATOCRIT 39.2 % (39.0-51.0); HEMOGLOBIN 13.3 GM/DL (13.0-17.0); LYMPH % 11.5 % (9.0-44.0); LYMPHOCYTE # 1.7 TH/MM3 (1.0-4.8); MEAN CELL VOLUME 96.2 FL (80.0-100.0); MEAN CORPUSCULAR HEMOGLOBIN 32.6 PG (27.0-34.0); MEAN CORPUSCULAR HGB CONC 33.9 % (32.0-36.0); MEAN PLATELET VOLUME 8.8 FL (7.0-11.0); MONO % 8.4 % (0.0-8.0); MONOCYTE # 1.2 TH/MM3 (0-0.9); NEUT % 78.8 % (16.0-70.0); PLATELET COUNT 219 TH/MM3 (150-450); RED BLOOD COUNT 4.07 MIL/MM3 (4.50-5.90); RED CELL DISTRIBUTION WIDTH 12.4 % (11.6-17.2); WHITE BLOOD COUNT 14.8 TH/MM3 (4.0-11.0)
[2017-04-21 07:11] LABS: CHLORIDE 105 MEQ/L (98-107); SODIUM (NA) 138 MEQ/L (136-145)
[2017-04-21 07:19] LABS: ALBUMIN 2.3 GM/DL (3.4-5.0); CALCIUM 7.7 MG/DL (8.5-10.1); GLUCOSE,RANDOM 137 MG/DL (74-106)
[2017-04-21 07:20] LABS: BICARBONATE 24.3 MEQ/L (21.0-32.0); BLOOD UREA NITROGEN 13 MG/DL (7-18)
[2017-04-21 07:31] LABS: ALKALINE PHOSPHATASE 95 U/L (45-117); ALT (GPT) 51 U/L (12-78); AST (GOT) 54 U/L (15-37); CREATININE 0.74 MG/DL (0.60-1.30); GLOMERULAR FILTRATION RATE 100 ML/MIN (>89); TOTAL BILIRUBIN ADULT 0.5 MG/DL (0.2-1.0); TOTAL PROTEIN 6.1 GM/DL (6.4-8.2)
[2017-04-21] MEDS ORDERED: POTASSIUM CHLORIDE 10 MEQ CONTROLLED RELEASE TAB PO ONE (07:45)
[2017-04-21 08:00] VITALS: BP 151/79; PULSE 85; RESP 20; TEMP 98.5; O2SAT 95
[2017-04-21] MEDS: INSULIN NovoLIN REGULAR SUPPLEMENTAL SCALE SQ SCH ×2 (08:00→12:00)
--- NOTE | 2017-04-21 08:36 | HHI.PR ---
Subjective Remarks Follow-up urosepsis and delirium. Patient seen and examined today, alert and oriented to person and time, still confused as to situation and place. Patient denies any suicidal ideation today. Patient is pleasant. Denies any pain. No acute events overnight. Psychiatry following. TMAX 100.0 overnight. Objective Vitals Vital Signs Date Time Temp Pulse Resp B/P (MAP) Pulse Ox O2 Delivery O2 Flow Rate FiO2 04/21/17 00:00 97.7 85 20 128/65 (86) 92 04/20/17 20:00 98.0 99 20 166/75 (105) 93 04/20/17 19:50 Room Air 04/20/17 15:30 75 04/20/17 12:00 100.0 103 20 157/76 (103) 92 04/20/17 08:45 Room Air I/O 04/20/17 04/20/17 04/20/17 04/21/17 04/21/17 04/21/17 07:00 15:00 23:00 07:00 15:00 23:00 Intake Total 1480 ml 1300 ml 1000 ml Output Total 520 ml 800 ml Balance 960 ml 500 ml 1000 ml Intake Oral 480 ml 300 ml 0 ml IV Total 1000 ml 1000 ml 1000 ml Output Urine Total 520 ml 800 ml # Voids 3 # Bowel Movements 0 Result Diagram: 04/21/17 0620 04/21/17 0620 Imaging Last Impressions Ribs X-Ray 04/18/17 0000 Signed Impressions: Service Date/Time: Tuesday, April 18, 2017 16:15 - CONCLUSION: Acute left rib fractures. Rody Horta MD Objective Remarks GENERAL: Well-nourished, well-developed patient in NAD. SKIN: Warm and dry. No rash. HEENT: Normocephalic. Atraumatic. Pupils equal and round. No scleral icterus. No injection or drainage. No nasal bleeding or discharge. Mucous membranes pink and moist. NECK: Supple. Trachea midline. CARDIOVASCULAR: Regular rate and rhythm. S1, S2 noted. No murmur appreciated. RESPIRATORY: No accessory muscle use. Clear to auscultation. Breath sounds equal bilaterally. GASTROINTESTINAL: Abdomen soft, non-tender, nondistended. Normoactive bowel sounds x4. MUSCULOSKELETAL: No obvious deformities. Extremities without clubbing, cyanosis , or edema. NEUROLOGICAL: Awake and alert. No obvious cranial nerve deficits. Motor grossly within normal limits. 5/5 muscle strength in bilateral upper and lower extremities. Normal speech. PSYCHIATRIC: Appropriate mood and affect. Some confusion today. A/P Problem List: (1) Leukocytosis ICD Code: D72.829 - Elevated white blood cell count, unspecified (2) Acute kidney injury ICD Code: N17.9 - Acute kidney failure, unspecified (3) UTI (urinary tract infection) ICD Code: N39.0 - Urinary tract infection, site not specified (4) Rib fractures ICD Code: S22.39XA - Fracture of one rib, unspecified side, initial encounter for closed fracture Status: Acute (5) Severe sepsis ICD Code: A41.9 - Sepsis, unspecified organism; R65.20 - Severe sepsis without septic shock Status: Acute Assessment and Plan 86-year-old male admitted secondary to urinary tract infection with severe sepsis, rib fracture, and delirium. Severe sepsis secondary to UTI. Urine culture growing Escherichia coli. Sensitive to ceftriaxone, will change to PO antibiotics. Monitor for improvement. Follow vital signs closely. Rib fractures secondary to falling at home Supportive care. PRN pain treatment. Denies any pain at this time. Acute encephalopathy Delirium Suicidal ideation Patient is not currently oriented and unable to make competent decisions, confusion to situation and place. Continue treatment of infection as above. Psychiatry is following. Placed on Seroquel. Plan is to discharge patient to medical psychiatry unit. Sitter is at bedside. Soft wrist restraints removed. Diabetes mellitus type 2, chronic Accu-Chek before meals and at bedtime, sliding scale, cover as needed. Follow blood sugar trends. Diabetic diet. Acute kidney injury secondary to UTI vs dehydration. Resolved. Continue IV fluids. Avoid nephrotoxins. Creatinine today 0.74. Hyperlipidemia, chronic: Continue statin. Hypokalemia, mild: K 3.4 today. Replaced. Monitor BMP. DVT prophylaxis: SCDs Discharge Planning Spoke to Dr. Chowdhury after his assessment, who requests transfer of patient to medical psychiatry unit at [facility]. Jennifer Mccormack Apr 21, 2017 08:35
[2017-04-21] MEDS: SODIUM CHLORIDE 0.9% FLUSH 10 ML FLUSH IV FLUSH SCH (09:00)
[2017-04-21] MEDS: CYANOCOBALAMIN 1,000 MCG TAB PO SCH (09:05)
[2017-04-21] MEDS: cefTRIAXone INJ 1,000 MG in SODIUM CHLORIDE 0.9% INJ 100 ML IV SCH (09:05)
[2017-04-21] MEDS: CALCIUM/VITAMIN D 250 MG/125 U TAB PO SCH (09:06)
[2017-04-21] MEDS: ASPIRIN 81 MG CHEW TAB CHEW SCH (09:06)
[2017-04-21] MEDS: QUEtiapine FUMARATE 25 MG TAB PO SCH ×2 (09:06→12:39)
[2017-04-21] MEDS: FOLIC ACID 1 MG TAB PO SCH (09:06)
[2017-04-21 12:00] VITALS: BP 119/79; PULSE 84; RESP 22; TEMP 98.4; O2SAT 95
[2017-04-21] MEDS: MAGNESIUM OXIDE 400 MG TAB PO SCH (12:39)
[2017-04-21] MEDS ORDERED: SERO25TA PO (16:00)
[2017-04-21] MEDS ORDERED: CIPR-9 PO (16:00)
--- NOTE | 2017-04-21 16:01 | HHI.DCPOC ---
Discharge Care Plan Diagnosis: (1) UTI (urinary tract infection) (2) Acute kidney injury (3) Leukocytosis (4) Unspecified psychosis Goals to Promote Your Health * To prevent worsening of your condition and complications * To maintain your health at the optimal level Directions to Meet Your Goals Take your medications as prescribed Follow your dietary instruction Follow activity as directed Keep your appointments as scheduled Take your immunizations and boosters as scheduled If your symptoms worsen call your PCP, if no PCP go to Urgent Care Center or Emergency Room Smoking is Dangerous to Your Health. Avoid second hand smoke Call the 24-hour hour crisis hotline for domestic abuse at Jennifer Mccormack Apr 21, 2017 16:01
--- NOTE | 2017-04-21 16:02 | HHI.DS ---
Discharge Summary Admission Date Apr 18, 2017 at 17:24 Discharge Date: Apr 21, 2017 Admitting Diagnosis Urosepsis, rib fracture (1) Leukocytosis ICD Code: D72.829 - Elevated white blood cell count, unspecified (2) Acute kidney injury ICD Code: N17.9 - Acute kidney failure, unspecified (3) UTI (urinary tract infection) ICD Code: N39.0 - Urinary tract infection, site not specified (4) Rib fractures ICD Code: S22.39XA - Fracture of one rib, unspecified side, initial encounter for closed fracture Status: Acute (5) Severe sepsis ICD Code: A41.9 - Sepsis, unspecified organism; R65.20 - Severe sepsis without septic shock Status: Acute Procedures . Brief History - From Admission The patient is an 86-year-old male who presented to the emergency department with pain in the left rib cage following a fall that occurred Wednesday. He is a poor historian. He states that he has lost track of time since being here. He feels that his rib cage pain is improving. He denies chest pain or dyspnea. He states that he occasionally becomes dizzy and that causes him to fall. He states that it usually happens at night when he is going to bed or first thing in the morning when he is waking up. He denies loss of consciousness. Did not hit his head. He reports diarrhea, one to 2 loose stools per day, for the last week. CBC/BMP: 04/21/17 0620 04/21/17 0620 Significant Findings Laboratory Tests Test 04/18/17 16:14 04/18/17 16:51 04/18/17 18:17 04/18/17 19:25 Urine Turbidity CLOUDY (CLEAR) Urine Protein 100 mg/dL (NEG-TRACE) Urine Ketones 15 mg/dL (NEG) Urine Occult Blood LARGE (NEG) Urine Nitrite POS (NEG) Urine Leukocyte Esterase TRACE (NEG) Urine WBC 15-19 /hpf (0-5) Urine WBC Clumps FEW (NONE) Urine Bacteria MOD /hpf (NONE) Lactic Acid Level 2.3 mmol/L (0.4-2.0) Total Creatine Kinase 369 U/L (39-308) Troponin I LESS THAN 0.02 NG/ML Test 04/18/17 22:45 04/19/17 04:45 04/20/17 04:53 04/21/17 06:20 Total Creatine Kinase 361 U/L (39-308) White Blood Count 25.4 TH/MM3 (4.0-11.0) 18.6 TH/MM3 (4.0-11.0) 14.8 TH/MM3 (4.0-11.0) Red Blood Count 3.85 MIL/MM3 (4.50-5.90) 4.05 MIL/MM3 (4.50-5.90) 4.07 MIL/MM3 (4.50-5.90) Hematocrit 37.4 % (39.0-51.0) 38.9 % (39.0-51.0) Neutrophils (%) (Auto) 84.7 % (16.0-70.0) 82.8 % (16.0-70.0) 78.8 % (16.0-70.0) Lymphocytes (%) (Auto) 8.5 % (9.0-44.0) 7.9 % (9.0-44.0) Neutrophils # (Auto) 21.4 TH/MM3 (1.8-7.7) 15.3 TH/MM3 (1.8-7.7) 11.7 TH/MM3 (1.8-7.7) Monocytes # (Auto) 1.7 TH/MM3 (0-0.9) 1.3 TH/MM3 (0-0.9) 1.2 TH/MM3 (0-0.9) Toxic Granulation 1+ (NORMAL) Blood Urea Nitrogen 22 MG/DL (7-18) 19 MG/DL (7-18) Random Glucose 172 MG/DL (74-106) 148 MG/DL (74-106) 137 MG/DL (74-106) Total Protein 6.0 GM/DL (6.4-8.2) 6.1 GM/DL (6.4-8.2) Albumin 2.3 GM/DL (3.4-5.0) 2.3 GM/DL (3.4-5.0) Calcium Level 7.9 MG/DL (8.5-10.1) 7.7 MG/DL (8.5-10.1) 7.7 MG/DL (8.5-10.1) Total Bilirubin 1.3 MG/DL (0.2-1.0) Estimat Glomerular Filtration Rate 74 ML/MIN (>89) Neutrophils % (Manual) 80 % (16-70) Band Neutrophils % 8 % (0-6) Lymphocytes % 2 % (9-44) Monocytes % 9 % (0-8) Neutrophils # (Manual) 16.4 TH/MM3 (1.8-7.7) Monocytes (%) (Auto) 8.4 % (0.0-8.0) Aspartate Amino Transf (AST/SGOT) 54 U/L (15-37) Potassium Level 3.4 MEQ/L (3.5-5.1) Imaging Last Impressions Ribs X-Ray 04/18/17 0000 Signed Impressions: Service Date/Time: Tuesday, April 18, 2017 16:15 - CONCLUSION: Acute left rib fractures. K. Vaibhav Horta MD PE at Discharge GENERAL: Well-nourished, well-developed patient in NAD. SKIN: Warm and dry. No rash. HEENT: Normocephalic. Atraumatic. Pupils equal and round. No scleral icterus. No injection or drainage. No nasal bleeding or discharge. Mucous membranes pink and moist. NECK: Supple. Trachea midline. CARDIOVASCULAR: Regular rate and rhythm. S1, S2 noted. No murmur appreciated. RESPIRATORY: No accessory muscle use. Clear to auscultation. Breath sounds equal bilaterally. GASTROINTESTINAL: Abdomen soft, non-tender, nondistended. Normoactive bowel sounds x4. MUSCULOSKELETAL: No obvious deformities. Extremities without clubbing, cyanosis , or edema. NEUROLOGICAL: Awake and alert. No obvious cranial nerve deficits. Motor grossly within normal limits. 5/5 muscle strength in bilateral upper and lower extremities. Normal speech. PSYCHIATRIC: Appropriate mood and affect. Some confusion today. Pt update on day of discharge Follow-up urosepsis and delirium. Patient seen and examined today, alert and oriented to person and time, still confused as to situation and place. Patient denies any suicidal ideation today. Patient is pleasant. Denies any pain. No acute events overnight. Psychiatry following. TMAX 100.0 overnight. Hospital Course 86-year-old male admitted secondary to urinary tract infection with severe sepsis, rib fracture, and delirium. Patient had severe sepsis secondary to UTI. Urine culture growing Escherichia coli. Was placed on IV antibiotics, sensitive to ceftriaxone, changed to Cipro PO. Patient sustained rib fractures secondary to falling at home. Supportive care. PRN pain treatment while hospitalized. Patient developed acute encephalopathy, delirium and suicidal ideation. Psychiatry was consulted, placed patient on Seroquel. Had met with family during hospitalization and was deemed patient incompetent to make decisions. Sitter was ordered and for a time was placed in soft wrist restraints. Plan is to discharge patient to medical psychiatry unit. Patient has diabetes mellitus type 2 accu checks, sliding scale was offered. Acute kidney injury secondary to UTI vs dehydration upon presentation. Improved upon discharge. Patient with hyperlipidemia, chronic, continued statin. Patient was stabilized and discharged on by mouth antibiotics to medical psych [facility] for evaluation and monitoring under [place] act. There was a time during hospitalization when patient mentioned that he had wished to go home and she also had. Treatment deferred to psychiatry. Pt Condition on Discharge: Stable Discharge Disposition: Disc to Psych Care Fac Discharge Time: > 30 minutes Discharge Instructions DIET: Follow Instructions for: Diabetic Diet Speech Therapy-Diet Recommends: Regular Activities you can perform: Regular-No Restrictions Follow up Referrals: PCP Follow-up - 2-3 Days Psychiatry Adult - 2-3 Days New Medications: Ciprofloxacin (Cipro) 500 Mg Tab 500 MG PO Q12HR for UTI for 12 Days, #24 TAB Quetiapine (Seroquel) 25 Mg Tab 25 MG PO BID@09,12 for Agitation for 30 Days, #60 TAB Continued Medications: Aspirin (Aspirin Low Dose) 81 Mg Chew 81 MG CHEW DAILY, TAB 0 Refills Atorvastatin (Atorvastatin) 40 Mg Tab 40 MG PO HS for Cholesterol Management, #30 TAB 0 Refills Calcium Carbonate/Vitamin D3 (Calcium 600 + Vit D Tablet) 250 Mg Calcium (600 Mg )-125 Unit Tablet Cobalamine Combinations (Vitamin Z30-Wajzi Acid) 500-400 Mcg Tab 1 TAB PO EVERY OTHER DAY for Nutritional Supplement, TAB 0 Refills Coenzyme Q10 (Ubidecarenone) (Coq-10 Tr) 100 Mg Cap Magnesium Oxide (Magnesium Oxide) 400 Mg Tab 400 MG PO DAILY for Nutritional Supplement, TAB 0 Refills Metformin (Metformin) 500 Mg Tab 500 MG PO DAILY for Blood Sugar Management, #30 TAB 0 Refills With a meal Potassium Chloride ER (Potassium Chloride ER) 8 Meq Cap 99 MG PO DAILY for Electrolyte Replacement, #60 CAP 0 Refills Jennifer Mccormack Apr 21, 2017 16:02
[2017-04-21] MEDS ORDERED: CIPROFLOXACIN 500 MG TAB PO SCH (21:00)
--- NOTE | 2017-04-22 08:04 | HHI.PYPN ---
Subjective Remarks This is a late entry, the patient was seen on April 21, 2017 at 4:30 PM Patient was seen today for psychiatric reevaluation. Chart was reviewed. Case was widely discussed with attending in charge. On psychiatric evaluation today the patient is minimally engageable in a conversation, the patient is quite sedated and sleepy. However, he was able to open his eyes and recognized me from yesterday. Patient says that he feels much better and he is ready to go home. Patient, however, is just oriented in person, disoriented in time and place. As per nursing charge and as per daughter at bedside, patient has continued to be agitated, paranoid, at times disorganized. His daughter shares her concern of her father going to her house in this mental condition and the danger that this could represent to himself and also to her mother. She is convinced that the patient has been decompensating slowly mentally, with increased paranoia and hostility in the last weeks and he should be admitted in psychiatry for stabilization and safety. Review of Systems Psychiatric: COMPLAINS OF: Agitation, Delusions Except as stated in HPI: all other systems reviewed are Neg Mental Status Examination Appearance: Appropriate Consciousness: Alert Orientation: Person, Date/Time Motor Activity: Normal gait Speech: Unremarkable Language: Adequate Fund of Knowledge: Inadequate Attention and Concentration: Adequate Memory: Impaired Mood: Irritable Affect: Irritable Thought Content: Delusional Hallucination Type: Visual Suicidal Ideation: Yes Suicidal Plan: No Suicidal Intention: No Homicidal Ideation: No Homicidal Plan: No Homicidal Intention: No Insight: Poor Judgment: Poor Results Labs Date/Time Source Procedure Growth Status 04/18/17 15:15 Blood Peripheral Aerobic Blood Culture - Preliminary NO GROWTH IN 3 DAYS Resulted 04/18/17 15:15 Anaerobic Blood Culture - Preliminary Staphylococcus Epidermidis Resulted 04/18/17 17:31 Nasal Aspirate Influenza Types A,B Antigen (JIHAN) - Final NEGATIVE FOR FLU A AND B ANTIGEN.... Complete 04/18/17 16:14 Urine Clean Catch Urine Culture - Final Escherichia Coli Complete Vitals/IOs Vital Signs Date Time Temp Pulse Resp B/P (MAP) Pulse Ox O2 Delivery O2 Flow Rate FiO2 04/21/17 14:49 Room Air 04/21/17 12:00 98.4 84 22 119/79 (92) 95 04/19/17 20:15 04/19/17 08:00 2.00 Assessment & Plan Problem List: (1) Unspecified psychosis ICD Codes: F29 - Unspecified psychosis not due to a substance or known physiological condition Assessment & Plan: Continue Seroquel 25 mg twice a day. Patient is acutely psychotic, paranoid, agitated, he will be admitted in psychiatry for stabilization and safety. I will go ahead and melendez act the patient myself. Assessment & Plan Estimated LOS: days Justification for Cont. Inpt. Patient is for psychiatric admission. Transfer to Thomas Funk MD Apr 22, 2017 08:04
== END 2017-04-21 17:52 | DRG 871 ==
LOC: PHED 14:27 → PHEDA 17:24 → PH3A 21:30
PROVIDERS: ADMIT Hospitalist; ATTEND Hospitalist
DX: A41.9 Sepsis, unspecified organism (principal); G93.40 Encephalopathy, unspecified; N17.9 Acute kidney failure, unspecified; E87.2 Acidosis; S22.42XA Multiple fractures of ribs, left side, initial encounter for closed fracture; R45.851 Suicidal ideations; N39.0 Urinary tract infection, site not specified; R65.20 Severe sepsis without septic shock; Z85.828 Personal history of other malignant neoplasm of skin; W19.XXXA Unspecified fall, initial encounter; Y92.009 Unspecified place in unspecified non-institutional (private) residence as the place of occurrence of the external cause; Z78.1 Physical restraint status; R00.0 Tachycardia, unspecified; E11.9 Type 2 diabetes mellitus without complications; E78.5 Hyperlipidemia, unspecified; M19.90 Unspecified osteoarthritis, unspecified site; Z79.84 Long term (current) use of oral hypoglycemic drugs; E87.6 Hypokalemia
CPT/HCPCS: 71101; 80048; 80053; 81001; 82550; 82552; 82948; 83605; 83880; 84484; 85007; 85025; 85027; 85610; 85730; 87040; 87077; 87086; 87186; 87205; 87804; 93005; 96360; 96361; J0696; J2405; J2543; J3370; J7030; J7050

== ENCOUNTER 2017-04-21 17:28 | Inpatient (IN) | payer OTHER, MEDICARE ==
[~2017-04-21] VITALS: Ht 170.2 cm; Wt 96.3 kg
[~2017-04-21 17:28] MED LIST changes: +ASPI81CH6 CHEW; -ASPI81TA82 PO; +ATOR40TA16 PO; -BUME1TAB PO; -CALC-137 PO; +CALC600T64; +CIPR-9 PO; -CO Q100C9 OR; +COQ-100C5; -DOXY100T PO; +MAGN400T2 PO; +METF500T PO; -OXYB5TAB PO; +POTA8CAP PO; +SERO25TA PO; -SIMV80TA PO; -TRAM50TA PO; +VITATAB43 PO; -ZOFR4TAB3 SL
[2017-04-21 18:03] VITALS: BP 136/60; PULSE 91; RESP 16; TEMP 97.7
[2017-04-21] MEDS ORDERED: ACETAMINOPHEN 325 MG TAB PO PRN (18:30)
[2017-04-21] MEDS ORDERED: ALUMINUM/MAGNESIUM/SIMETH 30 ML CUP PO PRN (18:30)
[2017-04-21] MEDS ORDERED: MAGNESIUM HYDROXIDE SUSP 30 ML CUP PO PRN (18:30)
[2017-04-21] MEDS ORDERED: diphenhydrAMINE HCL 50 MG CAP PO PRN (18:30)
[2017-04-21] MEDS ORDERED: diphenhydrAMINE HCL 50 MG CAP - HS PRN PO (18:30)
[2017-04-21] MEDS ORDERED: diphenhydrAMINE HCL 50 MG/ML VIAL IM PRN (18:30)
[2017-04-21] MEDS ORDERED: hydrOXYzine HCL 50 MG TAB PO PRN (18:30)
[2017-04-21] MEDS ORDERED: diphenhydrAMINE HCL 50 MG/ML VIAL - HS PRN IM (18:30)
[2017-04-21] MEDS ORDERED: ATORVASTATIN 40 MG TAB PO SCH (21:00)
[2017-04-21] MEDS: CIPROFLOXACIN 500 MG TAB PO SCH (21:40)
[2017-04-22 06:38] VITALS: BP 156/85; PULSE 80; RESP 20; TEMP 95.6
[2017-04-22 06:55] VITALS: O2SAT 96
[2017-04-22] MEDS ORDERED: CYANOCOBALAMIN 100 MCG TAB PO SCH (09:00)
[2017-04-22] MEDS ORDERED: FOLIC ACID 1 MG TAB PO SCH (09:00)
[2017-04-22] MEDS ORDERED: POTASSIUM CHLORIDE 8 MEQ CONTROLLED RELEASE TAB PO SCH (09:00)
[2017-04-22] MEDS ORDERED: CALCIUM/VITAMIN D 250 MG/125 U TAB PO SCH (09:00)
[2017-04-22] MEDS ORDERED: ASPIRIN 81 MG CHEW TAB PO SCH (09:00)
[2017-04-22] MEDS ORDERED: SERTRALINE HCL 50 MG TAB PO SCH (09:45)
[2017-04-22] MEDS: CIPROFLOXACIN 500 MG TAB PO SCH (10:20)
[2017-04-22] MEDS: QUEtiapine FUMARATE 25 MG TAB PO SCH ×2 (10:20→12:16)
[2017-04-22] MEDS ORDERED: MAGNESIUM OXIDE 400 MG TAB PO SCH (11:00)
--- NOTE | 2017-04-22 16:41 | HHI.HP ---
Provisional Diagnosis Admission Date Apr 21, 2017 at 17:54 [place] I. Unspecified psychosis, r/o delirium Certification of Person's Competence To Provide Express and Informed Consent I have personally examined Steven Craig Jr Nuha , a person being served at [facility] on, Apr 22, 2017 16:17. Express and informed consent means consent voluntarily given in writing, by a competent person, after sufficient explanation and disclosure of the subject matter involved to enable the person to make a knowing and willful decision without any element of force, fraud, deceit, duress, or other form of constraint or coercion. This person is 18 years of age or older, is not now known to be incompetent to consent to treatment with a guardian advocate, and does not have a health care surrogate or proxy currently making medical treatment decisions. I have found this person to be one of the following: [] Competent to provide express and informed consent, as defined above, for voluntary admission to this facility and is competent to provide express and informed consent for treatment. He/she has the consistent capacity to make well reasoned, willful, and knowing decisions concerning his or her medical or mental health treatment. The person fully and consistently understands the purpose of the admission for examination/placement and is fully capable of personally exercising all rights assured [place] [x] Incompetent to provide express and informed consent to voluntary admission, and this is incompetent to provide express and informed consent to treatment. The person must be transferred to involuntary status and a petition for a guardian advocate filed with the Circuit Court. [] Refusing to provide express and informed consent to voluntary admission but is competent to provide express and informed consent for treatment. The person must be discharged or transferred to involuntary status. Form shall be completed within 24 hours of a person's arrival at the receiving facility and filed in the clinical record of each person: 1. Admitted on a voluntary basis 2. Permitted to provide express and informed consent to his/her own treatment 3. Allowed to transfer from involuntary to voluntary status 4. Prior to permitting a person to consent to his or her own treatment after having been previously found incompetent to consent to treatment. History of Present Illness Capacity: Has Capacity HPI Patient is a 86-year-old man, , retired, also security benefits , domiciled with and daughter, has 2 children, with no formal past psychiatric history, no substance use history with a past medical history significant for hypertension diabetes which patient was recently admitted to the medical unit due to sepsis secondary to UTI along with refracture from a fall and during hospitalization was noted to be agitated disorganized with suspected delirium and had endorsed paranoid ideations along with suicidal ideations in the context of being verbally hostile and aggressive toward and paranoid at home prior to his admission which patient was admitted to the inpatient psychiatry unit after medical stabilization for further evaluation and management. Patient was seen by psychiatry functional consultant Dr. Calhoun on the medical floor: found calm, superficially cooperative, he has been recently released from restraints. The patient reports good mood, but he is kind of confused, he denies that he is at his house in his room. His paranoid, he things that the voices of the nurses out of the room "are people talking about me and plotting to kill". Patient says that he is very scared "because I know that something is going on in the bank"however, the patient does not elaborate about this idea. He is redirected and reoriented, he seems to be sensitive to these measures. The patient denies distress, denies pain, he denies depressive symptoms. He is just partially oriented, he is disoriented in place, he says that we are in 2018, he knows who is the president of denies states. The patient denies suicidal ideation, however he says that "if I cannot escalera today and going to kill myself". 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 But after some minutes the patient become confused and tangential. He denies the use of illegal drugs and alcohol. Collateral information from his 2 kids, present during part of the evaluation, was obtained. They say that the patient has been increasingly disorganized, decompensating progressively physically and mentally in the last weeks. He has been verbally hostile and aggressive with his , he has been paranoid at home, making very bizarre accusations to family members and neighbors. They say that they are not safe with the patient at home, because he also has been stating that he wants to kill himself and he has firearms at home. Patient was found lying in hospital bed, cooperative. Patient alert and oriented only to person and to date was initially noted to be confused earlier in the morning. Patient reports having some difficulty with sleep at night but no difficulty with appetite energy or concentration. Patient was noted to be somewhat guarded during interview and was able to express feeling depressed recently along with having suicidal ideations but no method or plan. Patient reports that his current stressors include his and daughter having cancer but refused to elaborate on his suicidal ideations any further. Patient reports his mood being "good" denies having suicidal ideations at this time nor having any paranoid delusions as he had endorsed during his medical hospitalization. Patient also denies having had delusion of bank transaction stealing his money. He states he no longer has been having suicidal ideation since his admission to the inpatient psychiatry unit. Family psychiatric history: Denies Past psychiatric history: Denies any previous psychiatric diagnoses, hospitalizations, suicide attempt or self-injurious behavior. Patient denies history of abuse. Substance use history: Former smoker, no alcohol or drug use in the past. [place] past medical history: Hypertension, diabetes, recent medical admission as stated in history of present illness. Allergies: NKDA Social history: Born and raised in [place], domiciled with and daughter , has 2 children, unemployed and retired on Social Security benefits. Denies any legal history. Has access to firearms in the home. Review of Systems Except as stated in HPI: all other systems reviewed are Neg Past Psych History Psychological trauma history Denies Violence risk - others (6 mos) Elevated due to recent report of aggressive and hostile behavior toward Violence risk - self (6 mos) Elevated his recent reports of suicide ideation Substance Abuse History Drugs/Alcohol past 12 months For tobacco use, denies alcohol or drug use. Past Family Social History Coded Allergies: No Known Allergies (Verified Allergy, Unknown, 04/18/17) Active Scripts Quetiapine (Seroquel) 25 Mg Tab, 25 MG PO BID@09,12 for Agitation for 30 Days, # 60 TAB Prov:Jennifer Mccormack CAR EXAMINER 04/21/17 Ciprofloxacin (Cipro) 500 Mg Tab, 500 MG PO Q12HR for UTI for 12 Days, #24 TAB Prov:Jennifer Mccormack CAR EXAMINER 04/21/17 Reported Medications Cobalamine Combinations (Vitamin C51-Wlioj Acid) 500-400 Mcg Tab, 1 TAB PO EVERY OTHER DAY for Nutritional Supplement, TAB 0 Refills 04/18/17 Magnesium Oxide (Magnesium Oxide) 400 Mg Tab, 400 MG PO DAILY for Nutritional Supplement, TAB 0 Refills 04/18/17 Potassium Chloride ER (Potassium Chloride ER) 8 Meq Cap, 99 MG PO DAILY for Electrolyte Replacement, #60 CAP 0 Refills 04/18/17 Calcium Carbonate/Vitamin D3 (Calcium 600 + Vit D Tablet) 250 Mg Calcium (600 Mg )-125 Unit Tablet 04/18/17 Coenzyme Q10 (Ubidecarenone) (Coq-10 Tr) 100 Mg Cap 04/18/17 Aspirin (Aspirin Low Dose) 81 Mg Chew, 81 MG CHEW DAILY, TAB 0 Refills 04/18/17 Atorvastatin (Atorvastatin) 40 Mg Tab, 40 MG PO HS for Cholesterol Management, # 30 TAB 0 Refills 04/18/17 Metformin (Metformin) 500 Mg Tab, 500 MG PO DAILY for Blood Sugar Management, # 30 TAB 0 Refills With a meal 04/18/17 Current Medications Medications (Trade) Dose Ordered Sig/Alyssa Route Start Time Stop Time Status Last Admin (Atarax) 50 mg Q6H PRN PO 04/21/17 18:30 (Benadryl) 50 mg Q6H PRN PO 04/21/17 18:30 (Benadryl Inj) 50 mg Q6H PRN IM 04/21/17 18:30 (Benadryl) 50 mg HS PRN PO 04/21/17 18:30 04/21/17 21:40 (Benadryl Inj) 50 mg HS PRN IM 04/21/17 18:30 (Tylenol) 650 mg Q4H PRN PO 04/21/17 18:30 04/22/17 02:33 (Milk Of Magnesia Liq) 30 ml DAILY PRN PO 04/21/17 18:30 (Mag-Al Plus Susp Liq) 30 ml Q6H PRN PO 04/21/17 18:30 (Cipro) 500 mg BID PO 04/21/17 21:00 05/03/17 09:01 04/22/17 10:20 (SEROquel) 25 mg BID@0900,1200 PO 04/22/17 09:00 04/22/17 12:16 (Aspirin Chew) 81 mg DAILY PO 04/22/17 09:00 04/22/17 10:20 (Lipitor) 40 mg HS PO 04/21/17 21:00 04/21/17 21:40 (Oscal-D 250-125) 500 mg DAILY PO 04/22/17 09:00 04/22/17 10:22 (Vitamin B12) 500 mcg DAILY PO 04/22/17 09:00 04/22/17 10:21 (Folate) 1 mg DAILY PO 04/22/17 09:00 04/22/17 10:23 (Mag-Ox) 400 mg DAILY@1100 PO 04/22/17 11:00 04/22/17 11:00 (KCl) 8 meq DAILY PO 04/22/17 09:00 04/22/17 10:23 (Zoloft) 50 mg DAILY PO 04/22/17 09:45 04/22/17 10:23 Family Psych History Denies Social History Born and raised in [place], domiciled with and daughter, has 2 children , unemployed and retired on Social Security benefits. Denies any legal history. Has access to firearms in the home. Patient's Strengths (min. 2) verbal and communicative Physical Exam Patient not noted to be in acute distress, no gross motor abnormalities, no tremors or EPS, no noted psychomotor retardation or agitation. Vital Signs Vital Signs Date Time Temp Pulse Resp B/P (MAP) Pulse Ox O2 Delivery O2 Flow Rate FiO2 04/22/17 06:55 96 04/22/17 06:38 95.6 80 20 156/85 (108) I/O 04/22/17 04/22/17 04/23/17 08:00 16:00 00:00 Intake Total 0 ml 480 ml Balance 0 ml 480 ml Mental Status Examination Appearance: Appropriate Consciousness: Alert Orientation: Person, Date/Time Motor Activity: Other (not formally assessed) Speech: Unremarkable Language: Adequate Fund of Knowledge: Inadequate Attention and Concentration: Adequate Memory: Impaired Mood: Other ("good") Affect: Other (guarded) Thought Process & Associations: Linear, Other (concrete) Thought Content: Appropriate Hallucination Type: None Delusion Type: None Suicidal Ideation: Yes (denies today) Suicidal Plan: No Suicidal Intention: No Homicidal Ideation: No Homicidal Plan: No Homicidal Intention: No Insight: Poor Judgment: Impulsive Assessment & Plan Problem List: (1) Unspecified psychosis ICD Codes: F29 - Unspecified psychosis not due to a substance or known physiological condition Assessment & Plan Estimated LOS: 3-5 days. Patient is a 86-year-old man with no significant past psychiatric history was recently discharged from medical floor after stabilization from sepsis secondary to UTI which during his admission was endorsing suicidal ideations along with paranoia and confusion which patient was admitted to the inpatient psychiatry unit for further evaluation and management. Due to patient's recent paranoia, suicidal ideations as well as confusion patient will continue for further evaluation and management on the inpatient psychiatry unit. Patient also endorsed having recent depressive symptoms which patient will start sertraline 50 mg by mouth daily for depression , continue quetiapine 25 mg by mouth twice a day for psychosis. Continue recommendations as per primary medical team. Discharge planning in progress Discharge Planning Return back to his residence when psychiatrically stable Chin Hwang MD Apr 22, 2017 16:41
[2017-04-22 19:25] VITALS: BP 158/68; PULSE 91; RESP 20; TEMP 98.1; O2SAT 95
--- NOTE | 2017-04-22 19:34 | RADRPT ---
EXAM DATE/TIME: 04/22/2017 19:21 [place] COMPARISON: No previous studies available for comparison. INDICATIONS : Found unresponsive. RADIATION DOSE: 46.30 CTDIvol (mGy) MEDICAL HISTORY : Diabetes mellitus type 2. SURGICAL HISTORY : None. ENCOUNTER: Initial ACUITY: 1 day PAIN SCALE: Non-responsive LOCATION: cranial TECHNIQUE: Multiple contiguous axial images were obtained of the head. Using automated exposure control and adj ustment of the mA and/or kV according to patient size, radiation dose was kept as low as reasonably a chievable to obtain optimal diagnostic quality images. DICOM format image data is available electro nically for review and comparison. FINDINGS: CEREBRUM: The ventricles are normal for age. No evidence of midline shift, mass lesion, hemorrhage or acute in farction. No extra-axial fluid collections are seen. POSTERIOR FOSSA: The cerebellum and brainstem are intact. The 4th ventricle is midline. The cerebellopontine angle i s unremarkable. EXTRACRANIAL: The visualized portion of the orbits is intact. SKULL: The calvaria is intact. No evidence of skull fracture. CONCLUSION: No acute intracranial abnormality. Jose Elias Chambers MD on April 22, 2017 at 19:31 Board Certified Radiologist. This report was verified electronically.
[2017-04-22 20:10] LABS: AUTOMATED NEUTROPHIL # 8.7 TH/MM3 (1.8-7.7); BASOPHIL # 0.1 TH/MM3 (0-0.2); BASOPHIL % 0.6 % (0.0-2.0); EOSINOPHIL # 0.4 TH/MM3 (0-0.4); EOSINOPHIL % 2.8 % (0.0-4.0); HEMATOCRIT 41.7 % (39.0-51.0); HEMOGLOBIN 14.3 GM/DL (13.0-17.0); LYMPH % 18.5 % (9.0-44.0); LYMPHOCYTE # 2.3 TH/MM3 (1.0-4.8); MEAN CELL VOLUME 97.5 FL (80.0-100.0); MEAN CORPUSCULAR HEMOGLOBIN 33.4 PG (27.0-34.0); MEAN CORPUSCULAR HGB CONC 34.2 % (32.0-36.0); MEAN PLATELET VOLUME 8.2 FL (7.0-11.0); MONO % 9.7 % (0.0-8.0); MONOCYTE # 1.2 TH/MM3 (0-0.9); NEUT % 68.4 % (16.0-70.0); PLATELET COUNT 219 TH/MM3 (150-450); RED BLOOD COUNT 4.28 MIL/MM3 (4.50-5.90); RED CELL DISTRIBUTION WIDTH 13.3 % (11.6-17.2); WHITE BLOOD COUNT 12.7 TH/MM3 (4.0-11.0)
[2017-04-22 20:25] LABS: BICARBONATE 26.7 MEQ/L (21.0-32.0); CALCIUM 8.7 MG/DL (8.5-10.1); CREATININE 0.9 MG/DL (0.60-1.30)
[2017-04-22 21:07] LABS: BANDS 1 % (0-6); BASOPHILS 2 % (0-2); LYMPHOCYTES 4 % (9-44); MONOCYTES 5 % (0-8); NEUTROPHIL # MANUAL DIFF 10.8 TH/MM3 (1.8-7.7); POLYS (SEG NEUTROPHILS) 84 % (16-70)
--- NOTE | 2017-04-23 14:46 | EKG ---
Date Performed: 04/22/2017 Time Performed: 19:50:33 PTAGE: 86 years EKG: Sinus rhythm WITH FIRST DEGREE AV BLOCK WITH FREQUENT VENTRICULAR PREMATURE COMPLEXES LOW QRS VOLTAGE IN EXTREMIT Y LEADS POSSIBLE RIGHT VENTRICULAR CONDUCTION DELAY LEFT ANTERIOR FASCICULAR BLOCK POSSIBLE OLD INFER IOR WALL MYOCARDIAL INFARCTION ABNORMAL ECG Compared to PREVIOUS TRACING , the frequent PVCs are new but no other significant serial change. PREV IOUS TRACIN04/18/2017 15.22 DOCTOR: Gayle Garcia Interpretating Date/Time 04/23/2017 14:43:36
== END 2017-04-22 19:45 | disposition short-term general hospital (02) | DRG 885 ==
LOC: H4EA 17:54 → HIMN 04-22 19:15 → H4EA 04-22 19:15
PROVIDERS: ADMIT Student in an Organized Health Care Education/Training Program; ATTEND Student in an Organized Health Care Education/Training Program
DX: F29 Unspecified psychosis not due to a substance or known physiological condition (principal); E11.9 Type 2 diabetes mellitus without complications; R45.851 Suicidal ideations; I10 Essential (primary) hypertension; Z87.891 Personal history of nicotine dependence; Z79.84 Long term (current) use of oral hypoglycemic drugs
CPT/HCPCS: 36600; 70450; 80048; 82805; 85007; 85027; 93005; Q0163

== ENCOUNTER 2017-04-22 19:15 | Inpatient (IN) | payer OTHER, MEDICARE ==
[~2017-04-22] VITALS: Ht 170.2 cm; Wt 101.0 kg
[2017-04-22] VITALS (7 sets, daily range): BP systolic 129–153; BP diastolic 63–84; PULSE 87–98; RESP 18–20; TEMP 98.5; O2SAT 94–96
[2017-04-22] MEDS ORDERED: CHLORHEXIDINE GLUCONATE 2 % 1 PACK (2 CLOTHS)(extra cloths) TOPICAL PRN (20:30)
--- NOTE | 2017-04-22 20:36 | HHI.HP ---
HPI Service Critical Care Medicine Primary Care Physician Huber Barry MD Admission Diagnosis Diagnosis: Travel History International Travel<30 Days: No Contact w/Intl Traveler <30 Da: No Traveled to Known Affected Are: No History of Present Illness 86-year-old man with a past medical history significant for hypertension diabetes which patient was recently admitted to the medical unit due to sepsis secondary to UTI along with refracture from a fall and during hospitalization was noted to be agitated disorganized with suspected delirium and had endorsed paranoid ideations along with suicidal ideations in the context of being verbally hostile and aggressive toward and paranoid at home prior to his admission which patient was admitted to the inpatient psychiatry unit after medical stabilization for further evaluation and management. While in the psychiatry unit patient has suffered to weakness lethargy, and altered mental status barely arousable and was transferred to medical ICU. Review of Systems ROS Unobtainable patient is not arousable Past Family Social History Allergies: Coded Allergies: No Known Allergies (Verified Allergy, Unknown, 04/18/17) Past Medical History Hypertension Diabetes mellitus Recent UTI Delirium Past Surgical History Unable to obtain Reported Medications Reported Meds & Active Scripts Active Seroquel (Quetiapine Fumarate) 25 Mg Tab 25 Mg PO BID@09,12 30 Days Cipro (Ciprofloxacin HCl) 500 Mg Tab 500 Mg PO Q12HR 12 Days Reported Vitamin X77-Ktlmk Acid (Cobalamine Combinations) 500-400 Mcg Tab 1 Tab PO EVERY OTHER DAY Magnesium Oxide 400 Mg Tab 400 Mg PO DAILY Potassium Chloride ER (Potassium Chloride) 8 Meq Cap 99 Mg PO DAILY Calcium 600 + Vit D Tablet (Calcium Carbonate/Vitamin D3) 250 Mg Calcium (600 Mg )-125 Unit Tablet Coq-10 Tr (Coenzyme Q10 (Ubidecarenone)) 100 Mg Cap Aspirin Low Dose (Aspirin) 81 Mg Chew 81 Mg CHEW DAILY Atorvastatin (Atorvastatin Calcium) 40 Mg Tab 40 Mg PO HS Metformin (Metformin HCl) 500 Mg Tab 500 Mg PO DAILY With a meal Active Ordered Medications Current Medications Medications (Trade) Dose Ordered Sig/Alyssa Route PRN Reason Start Time Stop Time Status Last Admin Dose Admin Aspirin (Aspirin Chew) 81 mg DAILY CHEW 04/23/17 09:00 Atorvastatin Calcium (Lipitor) 40 mg HS PO 04/22/17 21:00 04/22/17 21:52 Ciprofloxacin (Cipro) 500 mg Q12HR PO 04/22/17 21:00 04/22/17 21:58 Sodium Chloride 1,000 ml @ 124 mls/hr Q8H4M IV 04/22/17 21:00 04/23/17 05:04 Sodium Chloride (NS Flush) 2 ml UNSCH PRN IV FLUSH FLUSH AFTER USING IV ACCESS 04/22/17 20:45 Sodium Chloride (NS Flush) 2 ml BID IV FLUSH 04/22/17 21:00 04/22/17 21:52 Acetaminophen (Tylenol) 650 mg Q6H PRN PO PAIN 1-10 AND/OR FEVER >101F 04/22/17 20:45 Famotidine (Pepcid Inj) 20 mg Q12HR IV PUSH 04/22/17 21:00 04/22/17 21:53 Ondansetron HCl (Zofran Inj) 4 mg Q6H PRN IV PUSH NAUSEA OR VOMITING 04/22/17 20:45 Albuterol/ Ipratropium (Duoneb Neb) 1 ampule Q2HR NEB PRN INH WHEEZING 04/22/17 20:45 Heparin Sodium (Porcine) (Heparin Inj) 5,000 units Q8H SQ 04/22/17 22:00 04/23/17 05:43 Miscellaneous Information 1 Q361D XX 04/22/17 20:45 04/22/17 20:45 Chlorhexidine Gluconate (Chlorhexidine 2% Cloth) 3 pack Taper DAILY@04 TOP 04/23/17 04:00 04/19/18 03:59 04/23/17 04:00 Chlorhexidine Gluconate (Chlorhexidine 2% Cloth) 3 pack UNSCH PRN TOP HYGIENIC CARE 04/22/17 20:45 Senna/Docusate Sodium (Marianne-Colace) 1 tab BID PO 04/22/17 21:00 Magnesium Hydroxide (Milk Of Magnesia Liq) 30 ml Q12H PRN PO Mild constipation 04/22/17 20:45 Sennosides (Senokot) 17.2 mg Q12H PRN PO Moderate constipation 04/22/17 21:00 Bisacodyl (Dulcolax Supp) 10 mg DAILY PRN RECTAL SEVERE CONSITIPATION 04/22/17 20:45 Lactulose (Lactulose Liq) 30 ml DAILY PRN PO SEVERE CONSITIPATION 04/22/17 20:45 Patient Own Medication POM:COBALAMINE COMBINATION VIT -1 TAB... EVERY OTHER DAY PO 04/24/17 09:00 Quetiapine Fumarate (SEROquel) 25 mg BID PO 04/22/17 22:00 04/22/17 21:58 Family History He states that both of his sisters are , his youngest sister last week. He states that he does not know anything about their medical history. Social History Quit smoking cigars "many years ago". Denies alcohol or illicit drug use. Physical Exam Vital Signs Vital Signs Date Time Temp Pulse Resp B/P (MAP) Pulse Ox O2 Delivery O2 Flow Rate FiO2 04/22/17 20:07 98.5 92 20 153/84 (107) 95 Physical Exam GENERAL: Elderly gentleman with altered mental status, barely arousable, responds to painful stimuli/voice SKIN: Warm and dry. HEAD: Normocephalic. EYES: No scleral icterus. No injection or drainage. NECK: Supple, trachea midline. No JVD or lymphadenopathy. CARDIOVASCULAR: Regular rate and rhythm without murmurs, gallops, or rubs. RESPIRATORY: Breath sounds equal bilaterally. No accessory muscle use. GASTROINTESTINAL: Abdomen soft, non-tender, nondistended. MUSCULOSKELETAL: No cyanosis, or edema. BACK: Nontender without obvious deformity. NEURO EXAM: GCS: 12 Patient is lethargic his neuro exam wax and wanes, occasionally follows commands Septic Shock Reassessment Septic shock perfusion: reassessment completed Caprini VTE Risk Assessment Caprini VTE Risk Assessment: Mod/High Risk (score >= 2) Caprini Risk Assessment Model Point Value = 1 Point Value = 2 Point Value = 3 Point Value = 5 Age 41-60 Minor surgery BMI > 25 kg/m2 Swollen legs Varicose veins or History of unexplained or recurrent spontaneous Oral contraceptives or hormone replacement Sepsis (< 1 month) Serious lung disease, including pneumonia (< 1 month) Abnormal pulmonary function Acute myocardial infarction Congestive heart failure (< 1 month) History of inflammatory bowel disease Medical patient at bed rest Age 61-74 Arthroscopic surgery Major open surgery (> 45 min) Laparoscopic surgery (> 45 min) Malignancy Confined to bed (> 72 hours) Immobilizing plaster cast Central venous access Age >= 75 History of VTE Family history of VTE Factor V Leiden Prothrombin [id number] Lupus anticoagulant Anticardiolipin antibodies Elevated serum homocysteine Heparin-induced thrombocytopenia Other congenital or acquired thrombophilia Stroke (< 1 month) Elective arthroplasty Hip, pelvis, or leg fracture Acute spinal cord injury (< 1 month) Prophylaxis Regimen Total Risk Factor Score Risk Level Prophylaxis Regimen 0-1 Low Early ambulation 2 Moderate Order ONE of the following: *Sequential Compression Device (SCD) *Heparin 5000 units SQ BID 3-4 Higher Order ONE of the following medications: *Heparin 5000 units SQ TID *Enoxaparin/Lovenox 40 mg SQ daily (WT < 150 kg, CrCl > 30 mL/min) *Enoxaparin/Lovenox 30 mg SQ daily (WT < 150 kg, CrCl > 10-29 mL/min) *Enoxaparin/Lovenox 30 mg SQ BID (WT < 150 kg, CrCl > 30 mL/min) AND/OR *Sequential Compression Device (SCD) 5 or more Highest Order ONE of the following medications: *Heparin 5000 units SQ TID (Preferred with Epidurals) *Enoxaparin/Lovenox 40 mg SQ daily (WT < 150 kg, CrCl > 30 mL/min) *Enoxaparin/Lovenox 30 mg SQ daily (WT < 150 kg, CrCl > 10-29 mL/min) *Enoxaparin/Lovenox 30 mg SQ BID (WT < 150 kg, CrCl > 30 mL/min) AND *Sequential Compression Device (SCD) Assessment and Plan Assessment and Plan Altered mental status - Encephalopathy - Metabolic toxic - CT head negative - Recent UTI - Psych medication recently admitted - Possible orthostatic hypotension - IV fluid - ICU admission - Telemetry - Supportive care UTI - Cipro Psychosis - Seroquel DVT GI prophylaxis - Teds SCDs - Subcutaneous heparin - Regular diet Critical Care: The total critical care time was 35 minutes. Time to perform other separately billable procedures was not included in the critical care time. Angel Park MD Apr 22, 2017 8:36 pm
[2017-04-22] MEDS ORDERED: MAGNESIUM HYDROXIDE SUSP 30 ML CUP PO PRN (20:45)
[2017-04-22] MEDS ORDERED: CHLORHEXIDINE GLUCONATE 2 % 1 PACK (2 CLOTHS) TOP PRN (20:45)
[2017-04-22] MEDS ORDERED: RESP: ALBUTEROL 2.5 MG/IPRATROPIUM 0.5 MG NEB (PRN) INH (20:45)
[2017-04-22] MEDS ORDERED: LACTULOSE SYRUP 20 GM/30 ML CUP PO PRN (20:45)
[2017-04-22] MEDS ORDERED: ACETAMINOPHEN 325 MG TAB PO PRN (20:45)
[2017-04-22] MEDS ORDERED: BISACODYL 10 MG SUPP RECTAL PRN (20:45)
[2017-04-22] MEDS ORDERED: MISCELLANEOUS NURSING INFORMATION XX SCH (20:45)
[2017-04-22] MEDS ORDERED: SODIUM CHLORIDE 0.9% FLUSH 10 ML FLUSH IV FLUSH PRN (20:45)
[2017-04-22] MEDS ORDERED: ONDANSETRON HCL 4 MG/2 ML VIAL IV PUSH PRN (20:45)
[2017-04-22] MEDS ORDERED: SENNOSIDES 8.6 MG TAB PO PRN (21:00)
[2017-04-22] MEDS: DOCUSATE SODIUM 50 MG/SENNA 8.6 MG TAB PO SCH (21:00)
[2017-04-22] MEDS: SODIUM CHLOR 0.9% 1000 ML INJ 1,000 ML IV SCH (21:00)
[2017-04-22] MEDS ORDERED: ATORVASTATIN 40 MG TAB PO SCH (21:00)
[2017-04-22] MEDS: SODIUM CHLORIDE 0.9% FLUSH 10 ML FLUSH IV FLUSH SCH (21:52)
[2017-04-22] MEDS: HEPARIN SODIUM - SQ 10,000 UNITS/ML VIAL SQ SCH (21:53)
[2017-04-22] MEDS: FAMOTIDINE 20 MG/2 ML VIAL IV PUSH SCH (21:53)
[2017-04-22] MEDS: CIPROFLOXACIN 500 MG TAB PO SCH (21:58)
[2017-04-22] MEDS: QUEtiapine FUMARATE 25 MG TAB PO SCH (21:58)
[2017-04-23] VITALS (22 sets, daily range): BP systolic 122–189; BP diastolic 60–95; PULSE 67–106; RESP 16–23; TEMP 98.3–98.8; O2SAT 92–100
[2017-04-23] MEDS ORDERED: CHLORHEXIDINE GLUCONATE 2 % 1 PACK (2 CLOTHS) TOP SCH (04:00)
[2017-04-23] MEDS ORDERED: CHLORHEXIDINE GLUCONATE 2 % 1 PACK (2 CLOTHS)(taper/protocol) TOPICAL SCH (04:00)
[2017-04-23 04:04] LABS: AUTOMATED NEUTROPHIL # 6.7 TH/MM3 (1.8-7.7); BASOPHIL % 0.4 % (0.0-2.0); EOSINOPHIL # 0.4 TH/MM3 (0-0.4); EOSINOPHIL % 4.1 % (0.0-4.0); HEMATOCRIT 38.9 % (39.0-51.0); HEMOGLOBIN 13.4 GM/DL (13.0-17.0); LYMPH % 22.6 % (9.0-44.0); LYMPHOCYTE # 2.4 TH/MM3 (1.0-4.8); MEAN CELL VOLUME 97.3 FL (80.0-100.0); MEAN CORPUSCULAR HEMOGLOBIN 33.6 PG (27.0-34.0); MEAN CORPUSCULAR HGB CONC 34.5 % (32.0-36.0); MONO % 9.2 % (0.0-8.0); NEUT % 63.7 % (16.0-70.0); PLATELET COUNT 260 TH/MM3 (150-450); RED CELL DISTRIBUTION WIDTH 13.2 % (11.6-17.2); WHITE BLOOD COUNT 10.5 TH/MM3 (4.0-11.0)
[2017-04-23 04:08] LABS: INTERNATIONAL NORMALIZED RATIO 1.1 RATIO; PROTHROMBIN TIME - PATIENT 11.4 SEC (9.8-11.6)
[2017-04-23 04:20] LABS: ALBUMIN 2.2 GM/DL (3.4-5.0); AST (GOT) 34 U/L (15-37); BICARBONATE 27.8 MEQ/L (21.0-32.0); BLOOD UREA NITROGEN 11 MG/DL (7-18); CHLORIDE 106 MEQ/L (98-107); CREATININE 0.74 MG/DL (0.60-1.30); GLOMERULAR FILTRATION RATE 100 ML/MIN (>89); GLUCOSE,RANDOM 121 MG/DL (74-106); SODIUM (NA) 141 MEQ/L (136-145)
[2017-04-23 04:26] LABS: ALKALINE PHOSPHATASE 78 U/L (45-117); ALT (GPT) 44 U/L (12-78); PHOSPHORUS 3.2 MG/DL (2.5-4.9); TOTAL BILIRUBIN ADULT 0.4 MG/DL (0.2-1.0); TOTAL PROTEIN 5.9 GM/DL (6.4-8.2)
[2017-04-23] MEDS: SODIUM CHLOR 0.9% 1000 ML INJ 1,000 ML IV SCH (05:04)
[2017-04-23] MEDS: HEPARIN SODIUM - SQ 10,000 UNITS/ML VIAL SQ SCH ×2 (05:43→14:00)
[2017-04-23] MEDS: CIPROFLOXACIN 500 MG TAB PO SCH (08:45)
[2017-04-23] MEDS: QUEtiapine FUMARATE 25 MG TAB PO SCH (08:45)
[2017-04-23] MEDS: DOCUSATE SODIUM 50 MG/SENNA 8.6 MG TAB PO SCH (08:45)
[2017-04-23] MEDS: SODIUM CHLORIDE 0.9% FLUSH 10 ML FLUSH IV FLUSH SCH (08:46)
[2017-04-23] MEDS: FAMOTIDINE 20 MG/2 ML VIAL IV PUSH SCH (08:46)
[2017-04-23] MEDS ORDERED: ASPIRIN 81 MG CHEW TAB CHEW SCH (09:00)
[2017-04-23] MEDS ORDERED: QUEtiapine FUMARATE 25 MG TAB PO SCH (09:00)
--- NOTE | 2017-04-23 12:21 | HHI.CCPN ---
Subjective Remarks/Hospital Course 86-year-old man with a past medical history significant for hypertension diabetes which patient was recently admitted to the medical unit due to sepsis secondary to UTI along with refracture from a fall and during hospitalization was noted to be agitated disorganized with suspected delirium and had endorsed paranoid ideations along with suicidal ideations in the context of being verbally hostile and aggressive toward and paranoid at home prior to his admission which patient was admitted to the inpatient psychiatry unit after medical stabilization for further evaluation and management. While in the psychiatry unit patient has suffered to weakness lethargy, and altered mental status barely arousable and was transferred to medical ICU. 04/23: Weakness and lethargy appears to have improved. Remains oriented to person somewhat to place knows he is in [place], but states in a medical store. Objective Vital Signs Date Time Temp Pulse Resp B/P (MAP) Pulse Ox O2 Delivery O2 Flow Rate FiO2 04/23/17 11:00 71 17 143/64 (90) 94 04/23/17 08:15 Nasal Cannula 2.00 04/23/17 08:00 98.3 Intake and Output 04/23/17 04/23/17 04/24/17 08:00 16:00 00:00 Intake Total 1186.1 ml Output Total 950 ml Balance 236.1 ml Result Diagram: 04/23/17 0344 04/23/17 0344 Objective Remarks GENERAL: Elderly gentleman with lying in bed SKIN: Warm and dry. HEAD: Normocephalic. EYES: No scleral icterus. No injection or drainage. NECK: Supple, trachea midline. No JVD or lymphadenopathy. CARDIOVASCULAR: Regular rate and rhythm without murmurs, gallops, or rubs. RESPIRATORY: Breath sounds equal bilaterally. No accessory muscle use. GASTROINTESTINAL: Abdomen soft, non-tender, nondistended. MUSCULOSKELETAL: No cyanosis, or edema. BACK: Nontender without obvious deformity. NEURO EXAM: Awake alert oriented to person and somewhat to place. Follows commands. Delirium appears to be improved A/P Assessment and Plan Altered mental status - Encephalopathy, Metabolic toxic - CT head negative - Recent UTI - Psych medication recently admitted - Possible orthostatic hypotension - IV fluid - ICU admission - Telemetry - Supportive care - Reconsult psych UTI - Continue Cipro Psychosis - Continue Seroquel DVT GI prophylaxis - Teds SCDs - Subcutaneous heparin - Regular diet Level [address] [facility] to assume care in am 04/24/17. Transfer to Med surg with Tele Radha Moctezuma MD Apr 23, 2017 12:21
[2017-04-24] MEDS ORDERED: NON-FORMULARY DRUG (Cobalamine Combinations (Vitamin B12-Folic Acid) 1 TAB) PO SCH (09:00)
[2017-04-24] MEDS ORDERED: [UNRECOGNIZED DRUG - OTHER] PO SCH (09:00)
== END 2017-04-23 21:38 | DRG 92 ==
LOC: HIMN 19:15 → H4EA 04-23 21:00
PROVIDERS: ADMIT Internal Medicine Critical Care Medicine; ATTEND Internal Medicine Critical Care Medicine
DX: G92 Toxic encephalopathy (principal); N39.0 Urinary tract infection, site not specified; E11.9 Type 2 diabetes mellitus without complications; I10 Essential (primary) hypertension; F29 Unspecified psychosis not due to a substance or known physiological condition; I95.1 Orthostatic hypotension; Z87.891 Personal history of nicotine dependence
CPT/HCPCS: 80053; 83735; 84100; 85025; 85610; 85730; 87641; J1644; J7030

== ENCOUNTER 2017-04-23 21:40 | Inpatient (IN) | payer OTHER, MEDICARE ==
[~2017-04-23] VITALS: Ht 165.1 cm; Wt 92.1 kg
[2017-04-23 21:00] VITALS: BP 173/93; PULSE 95; RESP 20; TEMP 97.7; O2SAT 93
[2017-04-23] MEDS ORDERED: MAGNESIUM HYDROXIDE SUSP 30 ML CUP PO PRN (23:00)
[2017-04-23] MEDS ORDERED: ALUMINUM/MAGNESIUM/SIMETH 30 ML CUP PO PRN (23:00)
[2017-04-23] MEDS ORDERED: NICOTINE 21 MG/24 HR PATCH T-DERMAL PRN (23:00)
[2017-04-23] MEDS ORDERED: ACETAMINOPHEN 325 MG TAB PO PRN (23:00)
[2017-04-23] MEDS ORDERED: DEXTROSE 50% IN WATER 50 ML VIAL(D50) IV PUSH PRN (23:15)
[2017-04-23] MEDS ORDERED: GLUCAGON 1 MG/ML VIAL OTHER PRN (23:15)
[2017-04-24] MEDS ORDERED: HALOPERIDOL LACTATE 5 MG/ML AMP IM STA (01:04)
[2017-04-24 03:00] VITALS: BP 154/89; PULSE 87; RESP 18; O2SAT 94
[2017-04-24 04:00] VITALS: BP 136/85; PULSE 123; RESP 24; TEMP 97.7; O2SAT 95
[2017-04-24] MEDS: INSULIN ASPART SUPPLEMENTAL SCALE SQ SCH ×4 (08:00→20:46)
[2017-04-24] MEDS: ASPIRIN EC 81 MG TABEC PO SCH (08:29)
[2017-04-24] MEDS: CIPROFLOXACIN 500 MG TAB PO SCH ×2 (08:29→20:32)
[2017-04-24 08:51] LABS: BICARBONATE 25.4 MEQ/L (21.0-32.0); BLOOD UREA NITROGEN 10 MG/DL (7-18); CALCIUM 8.7 MG/DL (8.5-10.1); CHLORIDE 105 MEQ/L (98-107); CHOLESTEROL 114 MG/DL (120-200); CREATININE 0.91 MG/DL (0.60-1.30); GLOMERULAR FILTRATION RATE 79 ML/MIN (>89); GLUCOSE,RANDOM 130 MG/DL (74-106); SODIUM (NA) 140 MEQ/L (136-145)
[2017-04-24 08:53] LABS: CHOLESTEROL/ HDL RATIO 4.73 RATIO; HDL CHOLESTEROL 24.1 MG/DL (40.0-60.0); LDL CHOLESTEROL 67 MG/DL (0-99); TRIGLYCERIDES 114 MG/DL (42-150)
--- NOTE | 2017-04-24 09:03 | PD.CONS ---
HPI Service [facility] Consult Requested By Dr. Chin Hwang Reason for Consult Medical management. Primary Care Physician Huber Barry MD Diagnoses: History of Present Illness This is a pleasant 86 y/o Male who presented to the emergency department with pain in the left rib cage following a fall that occurred Wednesday. He is a poor historian. He states that he has lost track of time since being here. He feels that his rib cage pain is improving. He denies chest pain or dyspnea. He states that he occasionally becomes dizzy and that causes him to fall. He states that it usually happens at night when he is going to bed or first thing in the morning when he is waking up. He denies loss of consciousness. Did not hit his head. He reports diarrhea, one to 2 loose stools per day, for the last week. On this admission his diagnosis were Severe Sepsis secondary to UTI, on Rocephin and Vancomycin on admission, Fall/rib Fractures DM II, TITO, Hyperlipidemia, he was discharged on 04/21/17, on discharged he had Leukocytosis 14.8, Potassium 3.4, Urine culture growing E Coli, on Cipro by mouth, during hospitalization the patient developed Encephalopathy, delirium and suicidal ideation, was recommended to be discharged to Inpatient Psychiatric unit, He was seen by Critical Care due to a weakness and lethargy AMS and barely arousable, with Diagnosis of Encephalopathy, Metabolic toxic, CT head negative, probable orthostatic Hypotension, given IV fluids. stable on this visit, no new complaint able to walk without walker. Review of Systems Constitutional: DENIES: Fever, Chills, Change in appetite Endocrine: DENIES: Heat/cold intolerance Eyes: DENIES: Blurred vision, Eye pain Except as stated in HPI: all other systems reviewed are Neg Past Family Social History Allergies: Coded Allergies: No Known Allergies (Verified Allergy, Unknown, 04/18/17) Past Medical History Hyperlipidemia Diabetes mellitus type 2 Arthritis Past Surgical History The patient is unsure what surgeries he has had. Reported Medications Reported Meds & Active Scripts Active Seroquel (Quetiapine Fumarate) 25 Mg Tab 25 Mg PO BID@09,12 30 Days Cipro (Ciprofloxacin HCl) 500 Mg Tab 500 Mg PO Q12HR 12 Days Reported Vitamin H39-Owkfo Acid (Cobalamine Combinations) 500-400 Mcg Tab 1 Tab PO EVERY OTHER DAY Magnesium Oxide 400 Mg Tab 400 Mg PO DAILY Potassium Chloride ER (Potassium Chloride) 8 Meq Cap 99 Mg PO DAILY Calcium 600 + Vit D Tablet (Calcium Carbonate/Vitamin D3) 250 Mg Calcium (600 Mg )-125 Unit Tablet Coq-10 Tr (Coenzyme Q10 (Ubidecarenone)) 100 Mg Cap Aspirin Low Dose (Aspirin) 81 Mg Chew 81 Mg CHEW DAILY Atorvastatin (Atorvastatin Calcium) 40 Mg Tab 40 Mg PO HS Metformin (Metformin HCl) 500 Mg Tab 500 Mg PO DAILY With a meal Active Ordered Medications Current Medications Medications (Trade) Dose Ordered Sig/Alyssa Route Start Time Stop Time Status Last Admin (Tylenol) 650 mg Q4H PRN PO 04/23/17 23:00 (Milk Of Magnesia Liq) 30 ml DAILY PRN PO 04/23/17 23:00 (Mag-Al Plus Susp Liq) 30 ml Q6H PRN PO 04/23/17 23:00 (Habitrol 21 Mg Patch.24 Hr) 1 patch DAILY PRN T-DERMAL 04/23/17 23:00 (Cipro) 500 mg Q12HR PO 04/24/17 09:00 04/24/17 08:29 (Ecotrin Ec) 81 mg DAILY PO 04/24/17 09:00 04/24/17 08:29 (Lipitor) 40 mg HS PO 04/24/17 21:00 (D50w (Vial) Inj) 50 ml UNSCH PRN IV PUSH 04/23/17 23:15 (Glucagon Inj) 1 mg UNSCH PRN OTHER 04/23/17 23:15 (NovoLOG SUPPLEMENTAL SCALE) 1 ACHS SLIDING SCALE SQ 04/24/17 08:00 Family History Asked and denied. Social History Quit smoking cigars "many years ago". Denies alcohol or illicit drug use. Physical Exam Vital Signs Vital Signs Date Time Temp Pulse Resp B/P (MAP) Pulse Ox O2 Delivery O2 Flow Rate FiO2 04/24/17 04:00 97.7 123 24 136/85 (102) 95 04/24/17 03:00 87 18 154/89 (110) 94 04/23/17 21:00 97.7 95 20 173/93 (119) 93 Physical Exam GENERAL: Obesity in no acute distress. SKIN: Warm and dry. No rash. HEENT: Normocephalic. Atraumatic. Pupils equal and round. No scleral icterus. No injection or drainage. No nasal bleeding or discharge. Mucous membranes pink and moist. NECK: Supple. Trachea midline. CARDIOVASCULAR: Regular rate and rhythm. S1, S2 noted. No murmur appreciated. RESPIRATORY: No accessory muscle use. Clear to auscultation. Breath sounds equal bilaterally. GASTROINTESTINAL: Abdomen soft, non-tender, nondistended. Normoactive bowel sounds x4. MUSCULOSKELETAL: No obvious deformities. Extremities without clubbing, cyanosis , or edema. NEUROLOGICAL: Awake and alert. No obvious cranial nerve deficits. Motor grossly within normal limits. 5/5 muscle strength in bilateral upper and lower extremities. Normal speech. PSYCHIATRIC: Appropriate mood and affect. Some confusion today. Laboratory Laboratory Tests Test 04/24/17 08:08 Blood Urea Nitrogen 10 Creatinine 0.91 Random Glucose 130 Calcium Level 8.7 Sodium Level 140 Potassium Level 3.7 Chloride Level 105 Carbon Dioxide Level 25.4 Anion Gap 10 Estimat Glomerular Filtration Rate 79 Triglycerides Level 114 Cholesterol Level 114 LDL Cholesterol 67 HDL Cholesterol 24.1 Cholesterol/HDL Ratio 4.73 Result Diagram: 04/24/17 0808 Imaging Ribs X-Ray 04/18/17 0000 Signed Impressions: Service Date/Time: Tuesday, April 18, 2017 16:15 - CONCLUSION: Acute left rib fractures. KTameka Horta MD Assessment and Plan Assessment and Plan 1. Psychosis followed by Psychiatry specialist the patient was endorsing suicidal ideations along with paranoia and confusion which patient was admitted to the inpatient psychiatry unit for further evaluation and management. Started on Sertraline 50 mg daily and Quetiapine 25 mg by mouth BID for Psychosis. 2. UTI continue Ciprofloxacin 3. DM II continue sliding scale 4. Hyperlipidemia continue Statins. DVT GI prophylaxis - Teds SCDs - Subcutaneous heparin Appreciated Doctor Chin Hwang for this consult. Code Status Full Code Discussed Condition With Patient and Nurse miss Chandler Ramírez Gomez MD Apr 24, 2017 09:03
--- NOTE | 2017-04-24 09:10 | RADRPT ---
EXAM DATE/TIME: 04/24/2017 08:59 [facility] COMPARISON: No previous studies available for comparison. INDICATIONS : Pelvic pain post fall last night MEDICAL HISTORY : None. SURGICAL HISTORY : None. ENCOUNTER: Initial ACUITY: 1 day PAIN SCORE: 3/10 LOCATION: Right hip and pelvis FINDINGS: A single frontal view of the pelvis demonstrates no evidence of fracture. The bony pelvic ring is in tact. Bony mineralization is normal. The soft tissues are intact. Degenerative changes are seen wit hin the lower lumbar spine. CONCLUSION: No visualized fracture.. Jessica Long MD on April 24, 2017 at 9:07 Board Certified Radiologist. This report was verified electronically.
--- NOTE | 2017-04-24 09:45 | HHI.HP ---
Provisional Diagnosis Admission Date Apr 23, 2017 at 21:40 [place] I. Unspecified psychosis, rule out brief psychotic disorder, rule out major neurocognitive disorder Certification of Person's Competence To Provide Express and Informed Consent I have personally examined Steven Craig Jr Nuha , a person being served at [facility] on, Apr 24, 2017 09:35. Express and informed consent means consent voluntarily given in writing, by a competent person, after sufficient explanation and disclosure of the subject matter involved to enable the person to make a knowing and willful decision without any element of force, fraud, deceit, duress, or other form of constraint or coercion. This person is 18 years of age or older, is not now known to be incompetent to consent to treatment with a guardian advocate, and does not have a health care surrogate or proxy currently making medical treatment decisions. I have found this person to be one of the following: [] Competent to provide express and informed consent, as defined above, for voluntary admission to this facility and is competent to provide express and informed consent for treatment. He/she has the consistent capacity to make well reasoned, willful, and knowing decisions concerning his or her medical or mental health treatment. The person fully and consistently understands the purpose of the admission for examination/placement and is fully capable of personally exercising all rights assured [place] [x] Incompetent to provide express and informed consent to voluntary admission, and this is incompetent to provide express and informed consent to treatment. The person must be transferred to involuntary status and a petition for a guardian advocate filed with the Circuit Court. [] Refusing to provide express and informed consent to voluntary admission but is competent to provide express and informed consent for treatment. The person must be discharged or transferred to involuntary status. Form shall be completed within 24 hours of a person's arrival at the receiving facility and filed in the clinical record of each person: 1. Admitted on a voluntary basis 2. Permitted to provide express and informed consent to his/her own treatment 3. Allowed to transfer from involuntary to voluntary status 4. Prior to permitting a person to consent to his or her own treatment after having been previously found incompetent to consent to treatment. History of Present Illness Capacity: Has Capacity HPI Patient is a 86-year-old man, , retired, also security benefits , domiciled with and daughter, has 2 children, with no formal past psychiatric history, no substance use history with a past medical history significant for hypertension diabetes which patient was recently admitted to the medical unit due to sepsis secondary to UTI along with rib fracture from a fall and during hospitalization was noted to be agitated disorganized with suspected delirium and had endorsed paranoid ideations along with suicidal ideations in the context of being verbally hostile and aggressive toward and paranoid at home prior to his admission which patient was admitted to the inpatient psychiatry unit . Upon admission patient was started on sertraline 50 mg p.o. daily continued on rest of medications. Patient later was found to be nonresponsive which Helly Was called and transferred to the medical ICU unit for further medical evaluation. Patient was again cleared medically and retransferred back to the inpatient psychiatry unit for further evaluation. Discussion with nursing staff reported the patient had a fall last evening after having become agitated and slipped on water that was on the floor which she had thrown at staff during agitation. Patient did receive ETO of Haldol 2 mg IM as well as refused imaging of right hip after fall and medications last evening. Patient was found sitting in hospital bed this morning allowing phlebotomy for blood draw noted to be calm and cooperative today. Patient is noted to be alert and oriented only to person and date but not to place or situation. Patient states that [place], did not recall events that brought him to the hospital no recent events of having been transferred to ICU. Patient states that his mood is "sometimes okay and sometimes I am not" and referred to his period of agitation last evening but did not elaborate. Patient does recall falling last evening and agreed to having imaging done today. Patient this time denies any suicide ideations and agrees to continue current treatment for now. Family psychiatric history: Denies Past psychiatric history: Denies any previous psychiatric diagnoses, hospitalizations, suicide attempt or self-injurious behavior. Patient denies history of abuse. Substance use history: Former smoker, no alcohol or drug use in the past. Past medical history: Hypertension, diabetes, recent medical admission as stated in history of present illness. Allergies: NKDA Social history: Born and raised in [place], domiciled with and daughter , has 2 children, unemployed and retired on Social Security benefits. Denies any legal history. Has access to firearms in the home. Review of Systems Except as stated in HPI: all other systems reviewed are Neg Past Family Social History Coded Allergies: No Known Allergies (Verified Allergy, Unknown, 04/18/17) Active Scripts Quetiapine (Seroquel) 25 Mg Tab, 25 MG PO BID@09,12 for Agitation for 30 Days, # 60 TAB Prov:Jennifer Mccormack SEATING AND MOBILITY TECHNOLOGIST 04/21/17 Ciprofloxacin (Cipro) 500 Mg Tab, 500 MG PO Q12HR for UTI for 12 Days, #24 TAB Prov:Jennifer Mccormack SEATING AND MOBILITY TECHNOLOGIST 04/21/17 Reported Medications Cobalamine Combinations (Vitamin T63-Jeegn Acid) 500-400 Mcg Tab, 1 TAB PO EVERY OTHER DAY for Nutritional Supplement, TAB 0 Refills 04/18/17 Magnesium Oxide (Magnesium Oxide) 400 Mg Tab, 400 MG PO DAILY for Nutritional Supplement, TAB 0 Refills 04/18/17 Potassium Chloride ER (Potassium Chloride ER) 8 Meq Cap, 99 MG PO DAILY for Electrolyte Replacement, #60 CAP 0 Refills 04/18/17 Calcium Carbonate/Vitamin D3 (Calcium 600 + Vit D Tablet) 250 Mg Calcium (600 Mg )-125 Unit Tablet 04/18/17 Coenzyme Q10 (Ubidecarenone) (Coq-10 Tr) 100 Mg Cap 04/18/17 Aspirin (Aspirin Low Dose) 81 Mg Chew, 81 MG CHEW DAILY, TAB 0 Refills 04/18/17 Atorvastatin (Atorvastatin) 40 Mg Tab, 40 MG PO HS for Cholesterol Management, # 30 TAB 0 Refills 04/18/17 Metformin (Metformin) 500 Mg Tab, 500 MG PO DAILY for Blood Sugar Management, # 30 TAB 0 Refills With a meal 04/18/17 Current Medications Medications (Trade) Dose Ordered Sig/Alyssa Route Start Time Stop Time Status Last Admin (Tylenol) 650 mg Q4H PRN PO 04/23/17 23:00 (Milk Of Magnesia Liq) 30 ml DAILY PRN PO 04/23/17 23:00 (Mag-Al Plus Susp Liq) 30 ml Q6H PRN PO 04/23/17 23:00 (Habitrol 21 Mg Patch.24 Hr) 1 patch DAILY PRN T-DERMAL 04/23/17 23:00 (Cipro) 500 mg Q12HR PO 04/24/17 09:00 04/24/17 08:29 (Ecotrin Ec) 81 mg DAILY PO 04/24/17 09:00 2/10/18 08:29 (Lipitor) 40 mg HS PO 04/24/17 21:00 (D50w (Vial) Inj) 50 ml UNSCH PRN IV PUSH 04/23/17 23:15 (Glucagon Inj) 1 mg UNSCH PRN OTHER 04/23/17 23:15 (NovoLOG SUPPLEMENTAL SCALE) 1 ACHS SLIDING SCALE SQ 04/24/17 08:00 Patient's Strengths (min. 2) Verbal and communicative Physical Exam Patient not noted to be in acute distress, no gross motor abnormalities, no tremors or EPS, no noted psychomotor retardation or agitation. Vital Signs Vital Signs Date Time Temp Pulse Resp B/P (MAP) Pulse Ox O2 Delivery O2 Flow Rate FiO2 04/24/17 04:00 97.7 123 24 136/85 (102) 95 I/O 04/24/17 04/24/17 04/25/17 08:00 16:00 00:00 Intake Total 480 ml Balance 480 ml Lab Results Labs reviewed Test 04/24/17 08:08 Blood Urea Nitrogen 10 MG/DL Creatinine 0.91 MG/DL Random Glucose 130 MG/DL Calcium Level 8.7 MG/DL Sodium Level 140 MEQ/L Potassium Level 3.7 MEQ/L Chloride Level 105 MEQ/L Carbon Dioxide Level 25.4 MEQ/L Anion Gap 10 MEQ/L Estimat Glomerular Filtration Rate 79 ML/MIN Triglycerides Level 114 MG/DL Cholesterol Level 114 MG/DL LDL Cholesterol 67 MG/DL HDL Cholesterol 24.1 MG/DL Cholesterol/HDL Ratio 4.73 RATIO Mental Status Examination Appearance: Appropriate Consciousness: Alert Orientation: Person, Date/Time Motor Activity: Other Speech: Unremarkable Language: Adequate Fund of Knowledge: Inadequate Attention and Concentration: Adequate Memory: Impaired Mood: Appropriate Affect: Appropriate Thought Process & Associations: Linear Thought Content: Appropriate Hallucination Type: None Delusion Type: None Suicidal Ideation: Yes (Denies today) Suicidal Plan: No Suicidal Intention: No Homicidal Ideation: No Homicidal Plan: No Homicidal Intention: No Insight: Fair Judgment: Impulsive Assessment & Plan Problem List: (1) Unspecified psychosis ICD Codes: F29 - Unspecified psychosis not due to a substance or known physiological condition Assessment & Plan Estimated LOS: 3-5 days. Patient is an 86-year-old man with no formal past psychiatric history was admitted initially to the medical floor due to sepsis secondary to UTI and had a history of recent aggression toward as well as his ideation and was transferred to the inpatient psychiatry for further evaluation and management. Patient was found to be unresponsive and transferred to ICU for further evaluation and now medically cleared and retransferred back to the psychiatry unit to continue evaluation and management. Petition for involuntary hospitalization started. Patient agrees continue current treatment which will include sertraline 50 mg p.o. daily along with quetiapine 25 mg p.o. twice daily for psychosis. Patient continues to be noted to be confused and disorganized at times which delirium versus cognitive disorder must be ruled out. Continue recommendations as per prior medical team. Patient continues be on fall precautions. Patient agrees to have imaging of right hip. Discharge planning in progress. Discharge Planning Back to his residence once psychiatrically stable. Chin Hwang MD Apr 24, 2017 09:45
[2017-04-24 11:13] LABS: HEMOGLOBIN A1C 7.1 % (4.3-6.0)
[2017-04-24] MEDS: QUEtiapine FUMARATE 25 MG TAB PO SCH (12:30)
[2017-04-24] MEDS: SERTRALINE HCL 50 MG TAB PO SCH (12:30)
[2017-04-24 18:00] VITALS: BP 164/81; PULSE 97; RESP 18; TEMP 98; O2SAT 91
[2017-04-24] MEDS: ATORVASTATIN 40 MG TAB PO SCH (20:32)
[2017-04-25 06:00] VITALS: BP 129/60; PULSE 98; RESP 19; TEMP 97.6; O2SAT 94
[2017-04-25] MEDS: INSULIN ASPART SUPPLEMENTAL SCALE SQ SCH ×4 (08:00→21:00)
[2017-04-25] MEDS: QUEtiapine FUMARATE 25 MG TAB PO SCH ×2 (08:04→18:01)
[2017-04-25] MEDS: SERTRALINE HCL 50 MG TAB PO SCH (08:04)
[2017-04-25] MEDS: ASPIRIN EC 81 MG TABEC PO SCH (08:05)
[2017-04-25] MEDS: CIPROFLOXACIN 500 MG TAB PO SCH ×2 (08:06→22:20)
--- NOTE | 2017-04-25 09:17 | HHI.PR ---
Subjective Remarks Patient seen and examined this morning. Sitting up inside the bed. He is refusing insulin at this time. He reports he takes metformin at home and does well with sugars. Agreed to start metformin and hold the insulin at this time. He is awake alert oriented to name but not to place or time. Denies any pain or discomfort at this time. Let them know when he can leave. Informed him that he needs to discuss that with the psychiatry team. Objective Vitals Vital Signs Date Time Temp Pulse Resp B/P (MAP) Pulse Ox O2 Delivery O2 Flow Rate FiO2 04/25/17 06:00 97.6 98 19 129/60 (83) 94 04/24/17 18:00 98.0 97 18 164/81 (108) 91 I/O 04/24/17 04/24/17 04/24/17 04/25/17 04/25/17 04/25/17 07:00 15:00 23:00 07:00 15:00 23:00 Intake Total 480 ml 960 ml 480 ml 240 ml Balance 480 ml 960 ml 480 ml 240 ml Intake Oral 480 ml 960 ml 480 ml 240 ml # Voids 3 2 2 Result Diagram: 04/24/17 0808 Imaging Last Impressions Pelvis X-Ray 04/24/17105 Signed Impressions: Service Date/Time: Monday, April 24, 2017 08:59 - CONCLUSION: No visualized fracture.. Jessica Long MD Objective Remarks GEN: Well-developed, well-nourished patient. No acute distress. CV: Regular rate and rhythm without obvious murmurs LUNGS: Clear to auscultation bilaterally. Normal respiratory effort. No wheezes , rales, rhonchi. GI: Soft, nontender, nondistended. No palpable masses. Bowel sounds WNL. EXT: No edema. NEURO/PSYCH: Afocal. Awake, alert, and oriented x3. Appropriate insight and judgment. Medications and IVs Current Medications Medications (Trade) Dose Ordered Sig/Alyssa Route Start Time Stop Time Status Last Admin (Tylenol) 650 mg Q4H PRN PO 04/23/17 23:00 (Milk Of Magnesia Liq) 30 ml DAILY PRN PO 04/23/17 23:00 (Mag-Al Plus Susp Liq) 30 ml Q6H PRN PO 04/23/17 23:00 (Habitrol 21 Mg Patch.24 Hr) 1 patch DAILY PRN T-DERMAL 04/23/17 23:00 (Cipro) 500 mg Q12HR PO 04/24/17 09:00 04/25/17 08:06 (Ecotrin Ec) 81 mg DAILY PO 04/24/17 09:00 04/25/17 08:05 (Lipitor) 40 mg HS PO 04/24/17 21:00 04/24/17 20:32 (D50w (Vial) Inj) 50 ml UNSCH PRN IV PUSH 04/23/17 23:15 (Glucagon Inj) 1 mg UNSCH PRN OTHER 04/23/17 23:15 (NovoLOG SUPPLEMENTAL SCALE) 1 ACHS SLIDING SCALE SQ 04/24/17 08:00 (SEROquel) 25 mg BID@09,12 PO 04/24/17 12:00 04/25/17 08:04 (Zoloft) 50 mg DAILY PO 04/24/17 10:00 04/25/17 08:04 (Glucophage) 500 mg DAILY PO 04/25/17 09:00 UNV A/P Problem List: (1) Diabetes mellitus ICD Code: E11.9 - Type 2 diabetes mellitus without complications (2) UTI (urinary tract infection) ICD Code: N39.0 - Urinary tract infection, site not specified (3) Unspecified psychosis ICD Code: F29 - Unspecified psychosis not due to a substance or known physiological condition Assessment and Plan Patient is an 86-year-old man with no formal past psychiatric history was admitted initially to the medical floor due to sepsis secondary to UTI and had a history of recent aggression toward 1. Psychosis followed by Psychiatry specialist the patient was endorsing suicidal ideations along with paranoia and confusion which patient was admitted to the inpatient psychiatry unit for further evaluation and management. Started on Sertraline 50 mg daily and Quetiapine 25 mg by mouth BID for Psychosis. 2. UTI continue Ciprofloxacin 3. DM II : Start metformin, sliding scale as needed 4. Hyperlipidemia continue Statins. DVT GI prophylaxis - Teds SCDs - Subcutaneous heparin Bereket Jorgensen MD, R3 Apr 25, 2017 09:17
--- NOTE | 2017-04-25 14:47 | HHI.PYPN ---
Subjective Remarks Patient is here for follow, chart reviewed. Discussion nursing staff reported the patient has not endorsed any suicidal ideations or perceptual disturbances since having returned from ICU. Patient was found lying in hospital bed noted be cooperative but somewhat guarded today. Patient states that he had a feeling "fine" denies feeling depressed or having suicide ideations. Patient continues to have some difficulty recalling events that brought him to the hospital or having been transferred to ICU back to the psychiatry unit. Patient states that he showered yesterday which he enjoyed. Patient denies any adverse drug reaction from medications. He reports having spoken with his and daughter over the phone yesterday but we did not want to elaborate how the conversation went with them and was noted to be more guarded during this time. Review of Systems Except as stated in HPI: all other systems reviewed are Neg Mental Status Examination Appearance: Appropriate Consciousness: Alert Orientation: Person, Date/Time Motor Activity: Other Speech: Unremarkable Language: Adequate Fund of Knowledge: Inadequate Attention and Concentration: Adequate Memory: Impaired Mood: Appropriate Affect: Other (Guarded) Thought Process & Associations: Linear Thought Content: Appropriate Hallucination Type: None Delusion Type: None Suicidal Ideation: Yes (Denies today) Suicidal Plan: No Suicidal Intention: No Homicidal Ideation: No Homicidal Plan: No Homicidal Intention: No Insight: Fair Judgment: Impulsive Results Vitals/IOs Vital Signs Date Time Temp Pulse Resp B/P (MAP) Pulse Ox O2 Delivery O2 Flow Rate FiO2 04/25/17 06:00 97.6 98 19 129/60 (83) 94 Intake and Output 04/25/17 04/25/17 04/26/17 08:00 16:00 00:00 Intake Total 240 ml 240 ml Balance 240 ml 240 ml Assessment & Plan Problem List: (1) Unspecified psychosis ICD Codes: F29 - Unspecified psychosis not due to a substance or known physiological condition Assessment & Plan Patient this time not noted to have any behavioral disturbances nor any perceptual disturbances. Patient denies any depressive symptoms or suicidal ideation but continued to have poor memory and recalling events that brought him to the hospital or evidence that were concerning prior to his hospitalization, i.e. aggressiveness towards . We will continue current medications for now. Collateral information pending from family to assist with the patient is back at baseline. Continue monitor mood and behavior discharge planning in progress. Justification for Cont. Inpt. At risk for further decompensation if at lower level of care Discharge Planning To be determined Chin Hwang MD Apr 25, 2017 14:47
[2017-04-25] MEDS: metFORMIN HCL 500 MG TAB PO SCH (18:01)
[2017-04-25 19:05] VITALS: BP 157/77; PULSE 91; RESP 19; TEMP 97.9; O2SAT 96
[2017-04-25] MEDS: ATORVASTATIN 40 MG TAB PO SCH (22:21)
[2017-04-26 05:42] VITALS: BP 135/64; PULSE 89; RESP 16; TEMP 98; O2SAT 93
[2017-04-26] MEDS: INSULIN ASPART SUPPLEMENTAL SCALE SQ SCH ×4 (08:00→20:17)
[2017-04-26] MEDS: metFORMIN HCL 500 MG TAB PO SCH (08:49)
[2017-04-26] MEDS: ASPIRIN EC 81 MG TABEC PO SCH (08:49)
[2017-04-26] MEDS: CIPROFLOXACIN 500 MG TAB PO SCH ×2 (08:49→20:16)
[2017-04-26] MEDS: SERTRALINE HCL 50 MG TAB PO SCH (08:49)
[2017-04-26] MEDS: QUEtiapine FUMARATE 25 MG TAB PO SCH ×2 (08:49→11:39)
--- NOTE | 2017-04-26 10:14 | HHI.PR ---
Subjective Remarks Blood sugars stable on metformin. UTI resolving clinically, treatment planned until 02/25/17. No fevers. Objective Vital Signs Date Time Temp Pulse Resp B/P (MAP) Pulse Ox O2 Delivery O2 Flow Rate FiO2 04/26/17 05:42 98.0 89 16 135/64 (87) 93 04/25/17 19:05 97.9 91 19 157/77 (103) 96 I/O 04/25/17 04/25/17 04/25/17 04/26/17 04/26/17 04/26/17 07:00 15:00 23:00 07:00 15:00 23:00 Intake Total 830 ml 480 ml 360 ml Balance 830 ml 480 ml 360 ml Intake Oral 830 ml 480 ml 360 ml # Voids 2 2 1 1 # Bowel Movements 1 Result Diagram: 04/24/17 0808 Objective Remarks GENERAL: NAD, A&Ox3 HEAD: Normocephalic. NECK: Supple, trachea midline. No lymphadenopathy. EYES: No scleral icterus. No injection or drainage. CARDIOVASCULAR: Regular rate and rhythm without murmurs, gallops, or rubs. RESPIRATORY: Breath sounds equal bilaterally. No accessory muscle use. GASTROINTESTINAL: Abdomen soft, non-tender, nondistended. MUSCULOSKELETAL: No cyanosis, or edema. SKIN: Warm and dry. NEURO: No focal neurological deficitis. A/P Problem List: (1) Acute kidney injury ICD Code: N17.9 - Acute kidney failure, unspecified (2) Leukocytosis ICD Code: D72.829 - Elevated white blood cell count, unspecified (3) UTI (urinary tract infection) ICD Code: N39.0 - Urinary tract infection, site not specified (4) Diabetes mellitus ICD Code: E11.9 - Type 2 diabetes mellitus without complications (5) Unspecified psychosis ICD Code: F29 - Unspecified psychosis not due to a substance or known physiological condition Assessment and Plan Patient is an 86-year-old man with no formal past psychiatric history was admitted initially to the medical floor due to sepsis secondary to UTI and had a history of recent aggression toward Acute Psychosis Treatment per psychiatry UTI Cipro until 02/25/18 DM2 Metformin Follow blood sugars Diabetic Diet Hyperlipidemia Statins DVT prophylaxis Teds KIs Guanakito Mercado MD Apr 26, 2017 10:14
[2017-04-26 11:18] LABS: HEMATOCRIT 41.1 % (39.0-51.0); MEAN CELL VOLUME 96.8 FL (80.0-100.0); MEAN CORPUSCULAR HEMOGLOBIN 33.1 PG (27.0-34.0); MEAN CORPUSCULAR HGB CONC 34.2 % (32.0-36.0); PLATELET COUNT 351 TH/MM3 (150-450); RED BLOOD COUNT 4.25 MIL/MM3 (4.50-5.90); RED CELL DISTRIBUTION WIDTH 13.3 % (11.6-17.2)
[2017-04-26 11:42] LABS: BICARBONATE 27.8 MEQ/L (21.0-32.0); CALCIUM 9.1 MG/DL (8.5-10.1); CREATININE 0.97 MG/DL (0.60-1.30)
--- NOTE | 2017-04-26 12:03 | HHI.PYPN ---
Subjective Remarks Chart review. Patient was found lying hospital, cooperative follow somewhat guarded. Patient stated that he was feeling "fine", noted to have confusion with events that brought him into the hospital. He denies any depressed mood, SI or HI. He denies any perceptual disturbances or delusions. Patient was noted to be more guarded when asked about his recent interactions with his family and refused to elaborate. He was also noted to be confused to when he last spoke to them or having been visited by them. Review of Systems Except as stated in HPI: all other systems reviewed are Neg Mental Status Examination Appearance: Appropriate Consciousness: Alert Orientation: Person, Date/Time Motor Activity: Other Speech: Unremarkable Language: Adequate Fund of Knowledge: Inadequate Attention and Concentration: Adequate Memory: Impaired Mood: Appropriate Affect: Other (Guarded) Thought Process & Associations: Linear Thought Content: Appropriate Hallucination Type: None Delusion Type: None Suicidal Ideation: Yes (Denies today) Suicidal Plan: No Suicidal Intention: No Homicidal Ideation: No Homicidal Plan: No Homicidal Intention: No Insight: Fair Judgment: Impulsive Results Labs labs reviewed Test 04/26/17 10:25 White Blood Count 11.0 TH/MM3 Red Blood Count 4.25 MIL/MM3 Hemoglobin 14.0 GM/DL Hematocrit 41.1 % Mean Corpuscular Volume 96.8 FL Mean Corpuscular Hemoglobin 33.1 PG Mean Corpuscular Hemoglobin Concent 34.2 % Red Cell Distribution Width 13.3 % Platelet Count 351 TH/MM3 Mean Platelet Volume 8.0 FL Blood Urea Nitrogen 14 MG/DL Creatinine 0.97 MG/DL Random Glucose 106 MG/DL Calcium Level 9.1 MG/DL Sodium Level 140 MEQ/L Potassium Level 3.8 MEQ/L Chloride Level 105 MEQ/L Carbon Dioxide Level 27.8 MEQ/L Anion Gap 7 MEQ/L Estimat Glomerular Filtration Rate 73 ML/MIN Vitals/IOs Vital Signs Date Time Temp Pulse Resp B/P (MAP) Pulse Ox O2 Delivery O2 Flow Rate FiO2 04/26/17 05:42 98.0 89 16 135/64 (87) 93 Intake and Output 04/26/17 04/26/17 04/27/17 08:00 16:00 00:00 Intake Total 360 ml Balance 360 ml Assessment & Plan Problem List: (1) Unspecified psychosis ICD Codes: F29 - Unspecified psychosis not due to a substance or known physiological condition Assessment & Plan Patient at this time noted to have baseline confusion concerning events that brought to the hospital but denies any depressive symptoms or suicidal ideations. Patient also noted to be guarded as far as symptomatology but compliant with treatment at this time. Patient will have family visiting him today to assess whether patient is back at baseline and appropriate for discharge and being safe to be discharged back to family due to concerns the patient had been aggressive with at home. We will continue current treatment collateral information pending from family. Discharge planning in progress. Justification for Cont. Inpt. At risk for decompensation at lower level of care Discharge Planning Back to his residence once psychiatrically stable Chin Hwang MD Apr 26, 2017 12:03
--- NOTE | 2017-04-26 12:39 | PD.PSY.CON ---
Provisional Diagnosis Admission Date Apr 23, 2017 at 21:40 [place]. Unspecified psychosis, rule out brief psychotic disorder, rule out major neurocognitive disorder History of Present Illness Service Psychiatry Consult Requested By Dr. 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 , domiciled with and daughter, has 2 children, with no formal past psychiatric history, no substance use history with a past medical history significant for hypertension diabetes which patient was recently admitted to the medical unit due to sepsis secondary to UTI along with rib fracture from a fall and during hospitalization was noted to be agitated disorganized with suspected delirium and had endorsed paranoid ideations along with suicidal ideations in the context of being verbally hostile and aggressive toward and paranoid at home prior to his admission which patient was admitted to the inpatient psychiatry unit . Upon admission patient was started on sertraline 50 mg p.o. daily continued on rest of medications. Patient later was found to be nonresponsive which Helly Was called and transferred to the medical ICU unit for further medical evaluation. Patient was again cleared medically and retransferred back to the inpatient psychiatry unit for further evaluation. Discussion with nursing staff reported the patient had a fall last evening after having become agitated and slipped on water that was on the floor which she had thrown at staff during agitation. Patient did receive ETO of Haldol 2 mg IM as well as refused imaging of right hip after fall and medications last evening. Patient was found sitting in hospital bed this morning allowing phlebotomy for blood draw noted to be calm and cooperative today. Patient is noted to be alert and oriented only to person and date but not to place or situation. Patient states that he is in [place], did not recall events that brought him to the hospital no recent events of having been transferred to ICU. Patient states that his mood is "sometimes okay and sometimes I am not" and referred to his period of agitation last evening but did not elaborate. Patient does recall falling last evening and agreed to having imaging done today. Patient this time denies any suicide ideations and agrees to continue current treatment for now. Patient was seen today for evaluation of a second opinion. Chart was reviewed. On somatic evaluation the patient is calm, cooperative, talkative. Patient reports that he feels much better, reports good mood, live, he is unable to verbalize the reason of his hospitalization, he is requesting to live, doesn't seem to have an insight of recent statements and actions. At this moment he denies suicidal and homicidal ideation, he denies visual and auditory hallucinations. He is partially oriented, no agitation, no aggressive behavior present. Past Family Social History Coded Allergies: No Known Allergies (Verified Allergy, Unknown, 04/18/17) Active Scripts Quetiapine (Seroquel) 25 Mg Tab, 25 MG PO BID@09,12 for Agitation for 30 Days, # 60 TAB Prov:Jennifer Mccormack [employer] 04/21/17 Ciprofloxacin (Cipro) 500 Mg Tab, 500 MG PO Q12HR for UTI for 12 Days, #24 TAB Prov:Jennifer Mccormack [employer] 04/21/17 Reported Medications Cobalamine Combinations (Vitamin F91-Uxldv Acid) 500-400 Mcg Tab, 1 TAB PO EVERY OTHER DAY for Nutritional Supplement, TAB 0 Refills 04/18/17 Magnesium Oxide (Magnesium Oxide) 400 Mg Tab, 400 MG PO DAILY for Nutritional Supplement, TAB 0 Refills 04/18/17 Potassium Chloride ER (Potassium Chloride ER) 8 Meq Cap, 99 MG PO DAILY for Electrolyte Replacement, #60 CAP 0 Refills 04/18/17 Calcium Carbonate/Vitamin D3 (Calcium 600 + Vit D Tablet) 250 Mg Calcium (600 Mg )-125 Unit Tablet 04/18/17 Coenzyme Q10 (Ubidecarenone) (Coq-10 Tr) 100 Mg Cap 04/18/17 Aspirin (Aspirin Low Dose) 81 Mg Chew, 81 MG CHEW DAILY, TAB 0 Refills 04/18/17 Atorvastatin (Atorvastatin) 40 Mg Tab, 40 MG PO HS for Cholesterol Management, # 30 TAB 0 Refills 04/18/17 Metformin (Metformin) 500 Mg Tab, 500 MG PO DAILY for Blood Sugar Management, # 30 TAB 0 Refills With a meal 04/18/17 Current Medications Medications (Trade) Dose Ordered Sig/Alyssa Route Start Time Stop Time Status Last Admin (Tylenol) 650 mg Q4H PRN PO 04/23/17 23:00 (Milk Of Magnesia Liq) 30 ml DAILY PRN PO 04/23/17 23:00 (Mag-Al Plus Susp Liq) 30 ml Q6H PRN PO 04/23/17 23:00 (Habitrol 21 Mg Patch.24 Hr) 1 patch DAILY PRN T-DERMAL 04/23/17 23:00 (Cipro) 500 mg Q12HR PO 04/24/17 09:00 04/28/17 23:00 04/26/17 08:49 (Ecotrin Ec) 81 mg DAILY PO 04/24/17 09:00 04/26/17 08:49 (Lipitor) 40 mg HS PO 04/24/17 21:00 04/25/17 22:21 (D50w (Vial) Inj) 50 ml UNSCH PRN IV PUSH 04/23/17 23:15 (Glucagon Inj) 1 mg UNSCH PRN OTHER 04/23/17 23:15 (NovoLOG SUPPLEMENTAL SCALE) 1 ACHS SLIDING SCALE SQ 04/24/17 08:00 (SEROquel) 25 mg BID@09,12 PO 04/24/17 12:00 04/26/17 11:39 (Zoloft) 50 mg DAILY PO 04/24/17 10:00 04/26/17 08:49 (Glucophage) 500 mg DAILY PO 04/25/17 10:00 04/26/17 08:49 Patient's Strengths (min. 2) Verbal and communicative Physical Exam Vital Signs Vital Signs Date Time Temp Pulse Resp B/P (MAP) Pulse Ox O2 Delivery O2 Flow Rate FiO2 04/26/17 05:42 98.0 89 16 135/64 (87) 93 I/O 04/26/17 04/26/17 04/27/17 08:00 16:00 00:00 Intake Total 360 ml Balance 360 ml Lab Results Test 04/26/17 10:25 White Blood Count 11.0 TH/MM3 Red Blood Count 4.25 MIL/MM3 Hemoglobin 14.0 GM/DL Hematocrit 41.1 % Mean Corpuscular Volume 96.8 FL Mean Corpuscular Hemoglobin 33.1 PG Mean Corpuscular Hemoglobin Concent 34.2 % Red Cell Distribution Width 13.3 % Platelet Count 351 TH/MM3 Mean Platelet Volume 8.0 FL Blood Urea Nitrogen 14 MG/DL Creatinine 0.97 MG/DL Random Glucose 106 MG/DL Calcium Level 9.1 MG/DL Sodium Level 140 MEQ/L Potassium Level 3.8 MEQ/L Chloride Level 105 MEQ/L Carbon Dioxide Level 27.8 MEQ/L Anion Gap 7 MEQ/L Estimat Glomerular Filtration Rate 73 ML/MIN Mental Status Examination Appearance: Appropriate Consciousness: Alert Orientation: Person, Date/Time Motor Activity: Other Speech: Unremarkable Language: Adequate Fund of Knowledge: Inadequate Attention and Concentration: Adequate Memory: Impaired Mood: Appropriate Affect: Other (Guarded) Thought Process & Associations: Linear Thought Content: Appropriate Hallucination Type: None Delusion Type: None Suicidal Ideation: Yes (Denies today) Suicidal Plan: No Suicidal Intention: No Homicidal Ideation: No Homicidal Plan: No Homicidal Intention: No Insight: Fair Judgment: Impulsive Assessment & Plan Problem List: (1) Unspecified psychosis ICD Codes: F29 - Unspecified psychosis not due to a substance or known physiological condition Assessment & Plan: I have seen and examined this patient, review chart, discussed with Dr. Hwang. I agree and concur with the assessment and plan. Consult appreciated. Assessment & Plan Estimated LOS: Thomas Leal MD Apr 26, 2017 12:39
[2017-04-26 18:33] VITALS: BP 115/53; PULSE 87; RESP 17; TEMP 98.1; O2SAT 93
[2017-04-26] MEDS: ATORVASTATIN 40 MG TAB PO SCH (20:16)
[2017-04-27 06:00] VITALS: BP 129/71; PULSE 106; RESP 19; TEMP 97.5; O2SAT 84
[2017-04-27] MEDS: INSULIN ASPART SUPPLEMENTAL SCALE SQ SCH ×2 (08:00→12:00)
[2017-04-27] MEDS ORDERED: ASPI81CH6 CHEW (08:53)
[2017-04-27] MEDS ORDERED: METF500T PO (08:53)
[2017-04-27] MEDS ORDERED: ATOR40TA16 PO (08:53)
[2017-04-27] MEDS ORDERED: CIPR-9 PO (08:53)
[2017-04-27] MEDS ORDERED: ZOLO50TA PO (08:53)
[2017-04-27] MEDS ORDERED: SERO25TA PO (08:53)
--- NOTE | 2017-04-27 08:54 | HHI.DS ---
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 , domiciled with and daughter, has 2 children, with no formal past psychiatric history, no substance use history with a past medical history significant for hypertension diabetes which patient was recently admitted to the medical unit due to sepsis secondary to UTI along with rib fracture from a fall and during hospitalization was noted to be agitated disorganized with suspected delirium and had endorsed paranoid ideations along with suicidal ideations in the context of being verbally hostile and aggressive toward and paranoid at home prior to his admission which patient was admitted to the inpatient psychiatry unit . Upon admission patient was started on sertraline 50 mg p.o. daily continued on rest of medications. Patient later was found to be nonresponsive which Sinanly Was called and transferred to the medical ICU unit for further medical evaluation. Patient was again cleared medically and retransferred back to the inpatient psychiatry unit for further evaluation. Discussion with nursing staff reported the patient had a fall last evening after having become agitated and slipped on water that was on the floor which she had thrown at staff during agitation. Patient did receive ETO of Haldol 2 mg IM as well as refused imaging of right hip after fall and medications last evening. Patient was found sitting in hospital bed this morning allowing phlebotomy for blood draw noted to be calm and cooperative today. Patient is noted to be alert and oriented only to person and date but not to place or situation. Patient states that he is in port [place], did not recall events that brought him to the hospital no recent events of having been transferred to ICU. Patient states that his mood is "sometimes okay and sometimes I am not" and referred to his period of agitation last evening but did not elaborate. Patient does recall falling last evening and agreed to having imaging done today. Patient this time denies any suicide ideations and agrees to continue current treatment for now. Patient was seen today for evaluation of a second opinion. Chart was reviewed. On somatic evaluation the patient is calm, cooperative, talkative. Patient reports that he feels much better, reports good mood, live, he is unable to verbalize the reason of his hospitalization, he is requesting to live, doesn't seem to have an insight of recent statements and actions. At this moment he denies suicidal and homicidal ideation, he denies visual and auditory hallucinations. He is partially oriented, no agitation, no aggressive behavior present. 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 , domiciled with and daughter, has 2 children, with no formal past psychiatric history, no substance use history with a past medical history significant for hypertension diabetes which patient was recently admitted to the medical unit due to sepsis secondary to UTI along with rib fracture from a fall and during hospitalization was noted to be agitated disorganized with suspected delirium and had endorsed paranoid ideations along with suicidal ideations in the context of being verbally hostile and aggressive toward and paranoid at home prior to his admission which patient was admitted to the inpatient psychiatry unit . Patient was started sertraline 50mg PO daily and continued on quetiapine 25mg PO BID which he tolerated well. Patient during initial psychiatric patient had to be transferred back to ICU for due to an episode of nonresponsiveness but was cleared to return back to the psychiatry unit after observation. He was noted to be more interactive with staff, improved mood, no longer endorsing depressed mood, auditory hallucinations nor suicidal ideation and noted with less irritablity. He was also noted to endorse being future oriented with motivation to continue treatment. Upon discharge patient stated feeling good, stated feeling okay with returning back to his home with family; noted to be calm and cooperative with staff. Physical therapy was involved during his admission and family was provided with information for patient to engage in physical rehab as they felt would benefit post discharge. He agreed to continuing medication regimen and treatment and follow up with outpatient services for continuity of care. Patient; denies SI, HI, AVH or delusions. Supportive psychotherapy provided. Suicide and violence risk assessment on day of discharge both suggest lower imminent risk, and the patient's level of function is adequate for planned level of outpatient care. Patient has maximized benefit from this inpatient psychiatric hospital stay and to return to psychiatric emergency room for any concerning psychiatric symptoms. Patient agrees with plan. Results Blood Pressure 129 / 71 Vital Signs Date Time Temp Pulse Resp B/P (MAP) Pulse Ox O2 Delivery O2 Flow Rate FiO2 04/27/17 06:00 97.5 106 19 129/71 (90) 84 Laboratory Tests Test 04/26/17 10:25 Red Blood Count 4.25 MIL/MM3 (4.50-5.90) Estimat Glomerular Filtration Rate 73 ML/MIN (>89) Laboratory Results Test 04/24/17 08:08 Cholesterol Level 114 MG/DL (120-200) HDL Cholesterol 24.1 MG/DL (40.0-60.0) Hemoglobin A1c 7.1 % (4.3-6.0) LDL Cholesterol 67 MG/DL (0-99) Triglycerides Level 114 MG/DL (42-150) Summary of Procedures none Imaging Last Impressions Pelvis X-Ray 04/24/17 0106 Signed Impressions: Service Date/Time: Monday, April 24, 2017 08:59 - CONCLUSION: No visualized fracture.. Jessica Long MD Pending results at discharge: No Medications # of Antipsychotic meds at D/C: 1 Approp Antipsych med options 1 - Minimum of three failed multiple trials of monotherapy. 2 - Documented plan to taper to monotherapy due to previous use of multiple meds OR cross-taper in progress at D/C. 3 - Documentation of augmentation of Clozapine. 4 - Justification other than those listed in allowable values 1-3, document here : Discharge Discharge Date: Apr 27, 2017 Discharge Diagnosis: (1) Unspecified psychosis ICD Code: F29 - Unspecified psychosis not due to a substance or known physiological condition Pt Condition on Discharge: Stable Discharge Disposition: Discharge Home Discharge Instructions Diet Instructions: Heart Healthy Diet Activities you can perform: Weight Bearing as Tasha Discharge Time > 30 minutes Mental Status Examination Appearance: Appropriate Consciousness: Alert Orientation: Person, Date/Time Motor Activity: Other Speech: Unremarkable Language: Adequate Fund of Knowledge: Inadequate Attention and Concentration: Adequate Memory: Impaired Mood: Appropriate Affect: Appropriate Thought Process & Associations: Goal directed, Linear Thought Content: Appropriate Hallucination Type: None Delusion Type: None Suicidal Ideation: No Suicidal Plan: No Suicidal Intention: No Homicidal Ideation: No Homicidal Plan: No Homicidal Intention: No Insight: Fair Judgment: Impulsive Discharge/Advance Care Plan Health Problems: (1) Unspecified psychosis Goals to promote your health * To prevent worsening of your condition and complications * To maintain your health at the optimal level Directions to meet your goals Take your medications as prescribed Follow your dietary instruction Follow activity as directed Keep your appointments as scheduled Take your immunizations and boosters as scheduled If your symptoms worsen call your PCP, if no PCP go to Urgent Care Center or Emergency Room For 05/10 questions related to your inpatient stay or results of tests pending at discharge, please contact Dr. Chin Hwang at Smoking is Dangerous to Your Health. Avoid second hand smoking Chin Hwang MD Apr 27, 2017 08:54
[2017-04-27] MEDS: QUEtiapine FUMARATE 25 MG TAB PO SCH ×2 (09:46→13:23)
[2017-04-27] MEDS: ASPIRIN EC 81 MG TABEC PO SCH (09:46)
[2017-04-27] MEDS: CIPROFLOXACIN 500 MG TAB PO SCH (09:46)
[2017-04-27] MEDS: SERTRALINE HCL 50 MG TAB PO SCH (09:46)
[2017-04-27] MEDS: metFORMIN HCL 500 MG TAB PO SCH (09:47)
== END 2017-04-27 14:45 | disposition home or self-care (01) | DRG 885 ==
LOC: H4EA 21:40
PROVIDERS: ADMIT Student in an Organized Health Care Education/Training Program; ATTEND Student in an Organized Health Care Education/Training Program
DX: F29 Unspecified psychosis not due to a substance or known physiological condition (principal); E11.9 Type 2 diabetes mellitus without complications; N39.0 Urinary tract infection, site not specified; E78.5 Hyperlipidemia, unspecified; M19.90 Unspecified osteoarthritis, unspecified site; Y92.239 Unspecified place in hospital as the place of occurrence of the external cause; I10 Essential (primary) hypertension; W01.0XXA Fall on same level from slipping, tripping and stumbling without subsequent striking against object, initial encounter; Z91.81 History of falling; Z79.84 Long term (current) use of oral hypoglycemic drugs; Z87.891 Personal history of nicotine dependence; S22.39XD Fracture of one rib, unspecified side, subsequent encounter for fracture with routine healing
CPT/HCPCS: 72170; 80048; 80061; 82948; 83036; 85027; J1630